=== PATIENT | female | born 1950 | race Caucasian/White ===

== ENCOUNTER → 2017-03-21 | Outpatient (CLI) | payer MEDICARE, OTHER | LOC: M LAB 08:53 | PROVIDERS: ATTEND Nurse Practitioner Women's Health | DX: R31.0 Gross hematuria (principal) ==

== ENCOUNTER → 2017-04-22 | Outpatient (CLI) | payer OTHER ==
[~2017-04-22] MED LIST: ISOVUE-370 76% 100ML VIAL (Q9967) As Ordered ONE
--- NOTE | 2017-04-23 04:57 | REP ---
Clinical: Hematuria. Technique: Axial precontrast, contrast enhanced, and delayed images of the abdomen and pelvis using 100 ml Isovue 370 intravenous contrast material with coronal and sagittal re-formations. Findings: Evaluation of the urinary check system demonstrates a 1.8 cm low density lesion in the medial lower pole of the right kidney which demonstrates enhancement and cannot be characterized as cyst. A 3.3 cm simple cyst is also appreciated in the anterior mid pole of the left kidney. No nephrolithiasis, perinephric stranding, hydroureteronephrosis or obstructing ureteral calculi are identified. Delayed images demonstrate normal excretion patterns to the collecting systems bladder. Liver, spleen, pancreas, gallbladder, and bilateral adrenal glands are normal. The enteric system is without obstruction or acute inflammatory process. Pelvis demonstrates normal bladder and evidence for prior hysterectomy. No pelvic fluid or ascites. No significant adenopathy. No free air. Abdominal aorta demonstrates atherosclerotic changes without aneurysm or dissection. Surrounding musculoskeletal structures are intact and without focal osseous abnormality. Lung bases are clear. Impression: 1. 1.8 cm low-density enhancing lesion in the right kidney suggestive of mass. No associated perinephric stranding or adenopathy appreciated. 2. 3.3 cm simple left renal cyst. Remainder of the urinary tract system is normal. 3. Remainder of the abdomen and pelvis is unremarkable. No ascites. No adenopathy. Signed by Carlos Barillas MD 04/23/2017 04:48 A
== END ==
LOC: M RAD 09:00
PROVIDERS: ATTEND Nurse Practitioner Women's Health
DX: N28.1 Cyst of kidney, acquired (principal)
CPT/HCPCS: 74178; Q9967

== ENCOUNTER → 2017-05-07 | Outpatient (CLI) | payer OTHER ==
[~2017-05-07] MED LIST changes: +ASPI81TA85 PO; +ATOR1TAB21 PO; +CALC600T57 PO; +HYDR12CA PO; -ISOVUE-370 76% 100ML VIAL (Q9967) As Ordered ONE; +LOSA50TA20 PO; +SERT-138 PO; +XANA0.25 PO
--- NOTE | 2017-05-07 09:03 | REPMRS ---
Patient History The patient states she has not had a clinical breast exam in over a year. Patient is postmenopausal. Family history of breast cancer in maternal aunt at age 42. 2 benign cyst aspirations. Digital Woman Screen Mammo: May 07, 2017 - Exam #: [id number] Bilateral CC and MLO view(s) were taken. Technologist: Shanika Dowling, Technologist Prior study comparison: May 14, 2016, digital woman screen mammo performed at [facility]. June 14, 2013, right breast digital mammo diagnostic unilateral, performed at [facility]. FINDINGS: There are scattered fibroglandular densities. There has been no change in the appearance of the mammogram from the prior studies. There is a mild amount of residual fibroglandular tissue which is fairly symmetric. There is no interval development of dominant mass, architectural distortion, or clustered microcalcification suggestive of malignancy. ASSESSMENT: BI-RADS/ACR category 1 mammogram. Negative. Recommendation Routine screening mammogram in 1 year (for women over age 40). This mammogram was interpreted with the aid of an FDA-approved computer-aided dectection system. Electronically Signed By: Luke Abel MD 05/07/17 0903
== END ==
LOC: M WHC 07:00
PROVIDERS: ATTEND Family Medicine
DX: Z12.31 Encounter for screening mammogram for malignant neoplasm of breast (principal); Z78.0 Asymptomatic menopausal state

== ENCOUNTER → 2017-05-11 | Outpatient (CLI) | payer OTHER ==
[2017-05-11 12:02] LABS: MEAN CORPUSCULAR HEMOGLOBIN 30.9 pg (27.0-33.0); MEAN CORPUSCULAR HGB CONC 34.3 g/dl (32.0-36.5); MEAN CORPUSCULAR VOLUME 89.9 fl (80.0-96.0); RED CELL DISTRIBUTION WIDTH 13.8 % (11.5-14.5); WHITE BLOOD COUNT 5.3 K/mm3 (4.0-10.0)
[2017-05-11 12:10] LABS: INR 1.01
--- NOTE | 2017-05-11 12:23 | REP ---
Clinical: Bladder mass. Comparison: 10/21/2013 . Technique: PA and lateral. Findings: The mediastinum and cardiac silhouette are normal. The lung hyman are clear and without acute consolidation, effusion, or pneumothorax. The skeletal structures are intact and normal. Impression: 1. No acute cardiopulmonary process. Signed by Carlos Barillas MD 05/11/2017 12:15 P
[2017-05-11 13:18] LABS: ALBUMIN 3.9 GM/DL (3.2-5.2); ALBUMIN/GLOBULIN RATIO 1.03 (1.00-1.93); BILIRUBIN,TOTAL 0.7 MG/DL (0.2-1.0); CREATININE FOR GFR 0.99 MG/DL (0.55-1.02); GLOMERULAR FILTRATION RATE 59.4 (>45); POTASSIUM SERUM 3.7 MEQ/L (3.5-5.1); TOTAL PROTEIN 7.7 GM/DL (6.4-8.2)
--- NOTE | 2017-05-13 07:24 | ECGEPIP ---
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
== END ==
LOC: M LAB 11:07
PROVIDERS: ATTEND Urology
DX: Z01.818 Encounter for other preprocedural examination (principal); D49.4 Neoplasm of unspecified behavior of bladder; Z79.899 Other long term (current) drug therapy

== ENCOUNTER → 2017-05-22 | Day surgery (SDC) | payer OTHER ==
--- NOTE | 2017-05-13 15:21 | CR ---
DATE OF CONSULTATION: 05/13/2017 PREOPERATIVE EVALUATION AND CONSULTATION SURGERY IS PLANNED FOR: 05/22/2017 at [facility] CONSULTING PHYSICIAN: Dr. Blaine Garcia SURGEON: Dr. Emmanuel Lowery of [facility] urology. PLANNED SURGICAL PROCEDURE: Cystoscopy with transurethral resection of bladder tumor and possible right ureteral stent placement. ANESTHESIA: General anesthesia. UROLOGY CONTACT: Iliana at [phone], extension 27. CHIEF COMPLAINT: Bladder tumor, D49.4. HISTORY OF PRESENT ILLNESS: Very pleasant 66-year-old patient of mine who presents today for preoperative evaluation and consultation for planned transurethral resection of bladder tumor. It is noted that she had seen Milton Neal NP in my office for an episode of gross hematuria earlier this year. Upon referral to urology, she was found to have a mass and surgery was planned. It is notable that the patient has had no personal history of cardiac issues. She denies any chest pain on exertion. She is able to exert herself past 3 METs without any chest pain or significant shortness of breath. She did have a nuclear stress test on 08/14/2009, which was found to be of low risk. EKG prior to that showed normal sinus rhythm. I do await preoperative testing, which the patient relates included EKG and laboratories completed at [facility]. Regarding the patient's respiratory status, she is a former smoker, smoking approximately one pack per day for 40 years, having quit in 2008 without any smoking since that time. She denies any wheezing, asthma symptoms or significant shortness of breath. She noted some nausea and vomiting previously with anesthesia, but no other reactions. No malignant hyperthermia. No apneic episodes. She does not believe she had any sleep apnea. She does snore on occasion but not regularly. Again, she has had no hematuria since her initial episode, nor did she have symptoms of a urinary tract infection (UTI) at this point. It is notable that the patient describes a renal mass that will also need evaluation after this initial surgical intervention. I do not have information regarding this, but will be requesting it. The patient's other medical issues are stable. These include hypertension, hyperlipidemia, osteoporosis, history of anxiety, postnasal drip, insomnia, and some trochanteric bursitis. The patient notes that the bursitis does flare intermittently, but otherwise we reviewed her medication in detail and she is taking each as prescribed with only rare use of her Xanax and Ambien use approximately twice a month only. PAST MEDICAL HISTORY: 1. Hypertension. 2. Hyperlipidemia. 3. Greater trochanteric bursitis bilaterally. 4. History of vertigo/resolved. 5. Insomnia. 6. Anxiety. 7. Osteoporosis, on bisphosphonate. 8. History of transient abnormal TSH. 9. Vulvar atrophy. 10. Family history of early cardiac disease. 11. Osteoarthritis of the lumbar spine. PAST SURGICAL HISTORY: 1. Colonoscopy. Dr. Rios in the fall of 2008. 2. Total hysterectomy in the late , along with appendectomy. 3. Left hand surgery in 1976. MEDICATIONS: - Boniva 150 mg monthly - Lipitor 20 mg one tablet daily - Xanax 0.5 mg one tablet twice a day as needed for anxiety (rarely used) - aspirin 81 mg by mouth daily (to be held for surgery) - Zoloft 100 mg by mouth daily - Ambien 5 mg one tablet at night as needed for sleep (using approximately twice a month) - hydrochlorothiazide 12.5 mg daily - calcium and vitamin D 500/400 International Units daily - Losartan 50 mg by mouth daily FAMILY HISTORY: Patient's father of heart disease at age 76. He also had Parkinson's. Mother suddenly from what was described as an acute myocardial infarction at age 73. She had a sister, Lavonne, who at age 68 of an acute myocardial infarction. She had a niece with a brain tumor, treated in [place]. SOCIAL HISTORY: The patient is to her second , Miguel Sam. She has three children from a prior marriage to Julius Mcneal. Two daughters, Aure and Anais, who live in [place] and [place], respectively. She has one son, Julius Bourne, who lives in [place], [place]. 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 She spends her bob in [place], [place]. She is a former smoker, having smoked approximately one pack of cigarettes per day for 40 years. She quit in 2008. REVIEW OF SYSTEMS: As per history of present illness. Otherwise, 10-system review is negative. PHYSICAL EXAMINATION: VITAL SIGNS: Blood pressure 128/74, pulse of 74. The patient is 5 feet 6 inches tall and weighs 166 pounds. Oxygen saturation is 98% on room air. GENERAL: The patient is well, no acute distress. Nontoxic. Alert and oriented times three. HEENT: Pupils are equal, round, and reactive to light and accommodation. Extraocular motions are intact. No lesions of the lid or conjunctivae. Oral cavity and oropharynx are benign except for a small amount of postnasal drip. Tympanic membranes are benign bilaterally with normal external auditory canals. NECK: Supple. No lymphadenopathy. No thyromegaly. HEART: Regular rate and rhythm. S1, S2. No murmurs appreciated. LUNGS: Clear to auscultation bilaterally. No rales, rhonchi or wheezes. ABDOMEN: Soft, nontender, nondistended. No organomegaly is appreciated. EXTREMITIES: No clubbing, cyanosis or edema. The patient has very thin ankles. NEUROLOGIC: Examination is completely nonfocal. She has a normal gait. Strength and sensation are intact to all four limbs. PREOPERATIVE TESTING: The patient reports that laboratories and EKG were completed at [facility]. We will obtain these, but at the time of dictation I do not have these available. LABORATORY DATA: Consist of PT/INR, CMP, CBC and urine culture. It is notable that the patient had a stress test on 08/14/[address] Yates, which was low risk (spoke to Dr. Yates' office regarding this during the patient's visit). ASSESSMENT AND PLAN: 1. Preoperative evaluation and consultation. Based on the information available to me at this point, the patient is optimized for surgical intervention. Although I do not have an EKG at this point, we will compare this when records are available to those from cardiology previously. Although her medical issues are as noted, she has no major predictors of significant coronary disease at this point, although she does have a family history of such. No significant respiratory issues, although she has a history of smoking. No significant issues with anesthesia, although precautions should be taken for pretreatment to avoid emesis and monitoring for occult obstructive sleep apnea symptoms. If I can be of any assistance, please call me at [phone]. 2. Neoplasm of the bladder. At this point in time, the patient understands the plan for excision with possible stenting of the ureter. Extensive education was done today reviewing the anatomy and the plan. She understands this and looks forward to surgical intervention. She does understand other treatment may be necessary. 3. Neoplasm of the right kidney. I do not have records but have requested such. She tells me that there is a possible lesion on the right kidney, which will need surgical intervention. She appears quite calm and methodical in her approach to having this procedure on 05/22 with followup of the lesion on the right kidney. She understands the need for followup. 4. Hypertension. Well controlled on present regimen. We will continue. 5. Hyperlipidemia. Doing well on Lipitor. We will continue. 6. Anxiety. Doing quite well with Zoloft at the present dose. Will use Xanax as prescribed prior to surgery if necessary. 7. Insomnia. Does well with Ambien as needed. May need this perioperatively as well. 8. Lumbar degenerative disc disease/osteoarthritis. Doing well at this point in time without exacerbation. We will monitor. 9. Osteoporosis. Doing well on monthly Boniva. Recent DEXA scan has been reviewed. 10. Postnasal drip. The patient will do saltwater gargles and nasal saline as necessary. 11. Trochanteric bursitis of the left hip. This is an ongoing issue. She does exercises that have been shown to her multiple times with good results. Pain medicine only as needed. 12. Ongoing care. I am going to see her again in the office as scheduled. Again, she will need followup on both laboratories and EKG from [facility] prior to surgery. If there are any new issues or concerns, prior to surgery, she will let us know as well. Addendum: Reviewed labs and EKG ordered by Dr Lowery's office. CBC, CMP, PT/PTT are WNL and EKG showed only sinus bradycardia with a HR of 57 bpm. No new information and the patient appears optimized for surgery as noted. MTDD
[~2017-05-22] VITALS: Ht 162.6 cm; Wt 73.9 kg
[~2017-05-22] MED LIST changes: +ACETAMINOPHEN TAB 650MG DOSE (2X325MG) PO PRN; +AMBI5TAB PO; +COLA100C5 PO; +CONRAY-60 60% 50ML VIAL (Q9961) As Ordered ONE; +GLYCOPYRROLATE INJ 0.2 MG/ML 2 ML VIAL As Ordered ONE; +IBAN150T5 PO; +LABETALOL HCL 100 MG/20 ML VIAL As Ordered ONE; +LIDOCAINE 2% INJ 100 MG/5 ML SDV (FOR ANES.) As Ordered ONE; +LR 1,000 ML IV ONE; +LR 1,000 ML IV SCH; +METOCLOPRAMIDE INJ 10MG/2ML VIAL (J2765) As Ordered ONE; +MIDAZOLAM INJ 2 MG/2 ML VIAL (J2250) As Ordered ONE; +NEOSTIGMINE 1MG/ML 5 ML SYRINGE (J2710) As Ordered ONE; +ONDANSETRON 4MG/2ML VIAL (J2405) As Ordered ONE; +ONDANSETRON 4MG/2ML VIAL (J2405) IV PRN; +PROPOFOL 200 MG/20 ML VIAL As Ordered ONE; +ROCURONIUM BROMIDE 50 MG/5 ML VIAL/SYRINGE As Ordered ONE; +SCOPOLAMINE 1.5 MG TRANSDERMAL TOP ONE; +TYLE325T5 PO; +ULTR50TA8 PO; +fentaNYL 100 MCG/2 ML INJECTION (J3010) As Ordered ONE; +fentaNYL 100 MCG/2 ML INJECTION (J3010) IV PRN
[2017-05-22 19:45] VITALS: BP 162/80
--- NOTE | 2017-05-23 13:02 | RO ---
DATE OF PROCEDURE: 05/22/2017 PREPROCEDURE DIAGNOSIS: Bladder tumors. POSTPROCEDURE DIAGNOSIS: Bladder tumors. PROCEDURE: Cystoscopy, transurethral resection of bladder tumors (greater than 5 cm), examination under anesthesia. SURGEON: Emmanuel Lowery MD NOTE KEEPER: None. ANESTHESIA: General. OPERATIVE INDICATIONS: This is a 66-year-old female who was found to have several bladder tumors along the right bladder wall and along the trigone. It was recommended she be brought to the operating room today for the above listed procedure. DESCRIPTION OF PROCEDURE: Patient was brought to the operating room and general anesthesia was induced. Prophylactic antibiotics were infused. She was then placed in dorsal lithotomy position and bimanual pelvic exam under anesthesia was performed. It was negative for palpable bladder masses. The bladder was freely mobile. The patient was then prepped and draped in the usual sterile fashion. At this point, a rigid cystoscope was inserted through the urethral meatus and advanced to the bladder. Her bladder was thoroughly examined and the only abnormalities seen were the bladder tumors on the right side of the bladder. At this point, I utilized a resectoscope to resect all the tumors. All of the tumors were then removed from the bladder using an Ellik evacuator. Of note, I was able to identify the right ureteral orifice and I did not have to resect on top of it. Because of that, I did not place a stent. Coagulation current was utilized to obtain hemostasis and hemostasis was adequate at the end of the procedure. Once done, the resectoscope was removed and an #18 Turkish Christopher catheter was inserted into the bladder and the balloon was filled with 10 mL of sterile water. The catheter was then connected to gravity drainage and this marked conclusion of the procedure. The patient was then taken out of dorsal lithotomy position, awakened from anesthesia and transported to the recovery room in stable condition. ESTIMATED BLOOD LOSS: 0 mL. COMPLICATIONS: None. SPECIMENS: Bladder tumors. PLAN: The patient will followup in a clinic in about a week for catheter removal and to discuss pathology results. Also, of note, she has a right renal tumor which will need to be treated with a partial nephrectomy at some point as well. [facility] HOSPITALShorty
== END | disposition home or self-care (01) ==
LOC: M SDC 13:30
PROVIDERS: ATTEND Urology
DX: D41.4 Neoplasm of uncertain behavior of bladder (principal); N28.89 Other specified disorders of kidney and ureter; R31.0 Gross hematuria; I10 Essential (primary) hypertension; F32.9 Major depressive disorder, single episode, unspecified; E78.5 Hyperlipidemia, unspecified; M51.9 Unspecified thoracic, thoracolumbar and lumbosacral intervertebral disc disorder; M81.0 Age-related osteoporosis without current pathological fracture; R06.83 Snoring; M70.61 Trochanteric bursitis, right hip; M70.62 Trochanteric bursitis, left hip; G47.00 Insomnia, unspecified; F41.9 Anxiety disorder, unspecified; N90.5 Atrophy of vulva; M47.819 Spondylosis without myelopathy or radiculopathy, site unspecified; Z88.5 Allergy status to narcotic agent; Z79.899 Other long term (current) drug therapy; Z79.82 Long term (current) use of aspirin; Z87.891 Personal history of nicotine dependence; Z90.710 Acquired absence of both cervix and uterus
CPT/HCPCS: 52240; 88305; J0690; J2250; J2405; J2710; J2765; J3010

== ENCOUNTER 2017-06-19 07:30 | Inpatient (IN) | payer OTHER, MEDICARE ==
--- NOTE | 2017-06-04 13:50 | CR ---
DATE OF CONSULTATION: 06/01/2017 PREOPERATIVE EVALUATION AND CONSULTATION: CONSULTING PHYSICIAN: Dr. Blaine Garcia MD. SURGEON: Dr. Emmanuel Lowery of [facility]. PLANNED SURGERY: Partial nephrectomy to be completed at [facility] on 06/19/2017. It is planned to be on the right side and robotic assisted, laparoscopic surgery under general anesthesia. This is being completed due to a renal mass. UROLOGY CONTACT: [phone], ext 27. CHIEF COMPLAINT: Kidney mass, N28.89. HISTORY OF PRESENT ILLNESS: This is a very pleasant 66-year-old patient of mine who presents today for preoperative evaluation consultation for planned partial nephrectomy in order to remove a mass that was found on CT scan evaluation of blood in the urine. The patient recently had a cystoscopy with removal of a superficial bladder tumor that was low grade. The patient did quite well with the procedure without any problems or issues. The patient has no personal history of cardiac issues. She denies any chest pain with exertion and is able to exert well beyond 3 mets without difficulty or significant shortness of breath. It is notable that she had a stress test 08/14/2009 that was found to be low risk. Electrocardiogram (EKG) completed on 05/13/2017 showed normal sinus rhythm. The patient is a former smoker having smoked approximately one pack a day for 40 years, quitting in 2008. She does deny any asthma symptoms, any wheezing, significant shortness of breath or other problems. She had no issues with prior anesthesia except for some nausea and vomiting, and has no family or personal history of malignant hyperthermia. She denies snoring or having any apneic spells as well. Otherwise, she notes her current medical issues are otherwise stable. Patient's other medical issues do include hypertension, hyperlipidemia, osteoporosis, history of anxiety, post nasal drip, insomnia, and trochanteric bursitis, all appear to be stable. She is taking all of her medication without difficulty. She does have a as needed medication for Xanax, Ambien, which can be used perioperatively if needed for anxiety or sleep issues. She uses them rarely , and again is otherwise doing well and has a good attitude regarding the upcoming surgery. PAST MEDICAL HISTORY: 1. Low grade bladder tumor recently resected in May 2017. 2. Hypertension. 3. Hyperlipidemia. 4. Greater trochanteric bursitis bilaterally. 5. History of vertigo, (resolved). 6. Insomnia. 7. Anxiety. 8. Osteoporosis on bisphosphonate. 9. History of transient abnormal TSH. 10. Vulvar atrophy. 11. Family history of early cardiac disease. 12. Osteoarthritis of the lumbar spine. PAST SURGICAL HISTORY: 1. Colonoscopy, Dr. Gabriel Reyna of 2008. 2. Total hysterectomy in late along with appendectomy. 3. Left hand surgery in 1976. 4. Transurethral removal of a low grade bladder tumor, May 2017. ALLERGIES: Patient reported morphine gave her hives at one point. MEDICATIONS: - Boniva 150 mg monthly - Lipitor 20 mg daily - Xanax 0.5 mg one tablet twice a day as needed for anxiety, (rarely used). - aspirin 81 mg, (understands this needs to be held for surgery). - Zoloft 100 mg by mouth daily - Ambien 5 mg by mouth nightly (as needed for sleep). Approximately used twice a month. - hydrochlorothiazide 12.5 mg daily - calcium with vitamin D Supplementation 50/400 international units taken daily - losartan 50 mg daily FAMILY HISTORY: The patient's father of heart disease at age 76. He also had Parkinson's. Mother suddenly of what they believe was acute myocardial infarction (AR) at age 73. A sister Lavonne at age 68 of acute myocardial infarction. She has a niece with a brain tumor, who is treated in [place]. SOCIAL HISTORY: The patient is to her second , Miguel Sam. She has three children from a prior marriage to Mr. Julius Mcneal. 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 She spends her bob in [place], [place]. She is former smoker having smoked approximately a pack a day for 40 years quitting in 2008. She does occasionally take alcohol, not on a regular basis. REVIEW OF SYSTEMS: As per history of present illness (HPI) otherwise, 10-systems review is negative. PHYSICAL EXAMINATION: VITAL SIGNS: Patient's weight is 162 pounds, 8 ounces, blood pressure 116/74, pulse 73, height 66 inches, oxygen saturation 98% on room air. GENERAL: The patient appears well. No acute distress. Nontoxic, alert, oriented times three. Appears to be quite upbeat. HEENT: Pupils equal, round, and reactive to light and accommodation. Extraocular motions are intact. There is no lesions of the lid or conjunctiva. Oral cavity and oropharynx are benign. TMs are benign bilaterally. Neck is supple. No lymphadenopathy or thyromegaly. HEART: Regular rate and rhythm. S1, S2 no murmurs. LUNGS: Clear to auscultation bilaterally. No rales or rhonchi or wheezes. ABDOMEN: Soft, nontender, nondistended. EXTREMITIES: No clubbing, cyanosis or edema. NEURO: Exam is nonfocal. ASSESSMENT/PLAN: 1. Preoperative evaluation consultation: Based on the information available, the patient appears to be optimized for surgical intervention. It is notable she recently had preoperative evaluation and surgery earlier this month and it appeared to go quite well without significant issues or concerns. The patient has no major risk factors for significant coronary artery disease, although she does have a family history, I expect appropriate monitoring will be made. She does not have any respiratory issues, known cardiac issues or significant anesthesia issues. If there are any concerns, please feel free to call me at [phone]. 2. Mass of the right kidney: At this point in time, I do not have full records and it does appear that this will be excised during the procedure. The patient is aware of the risk of a full nephrectomy may be necessary. She looks forward to having the surgery behind her. 3. Low grade bladder tumor - Recent resection with good results by Dr Lowery. She understands need for close urological follow up. Will monitor. 4. Hypertension: Well controlled, present intervention will continue. 5. Hyperlipidemia: Doing well on Lipitor. Will continue. 6. Anxiety. Doing well on Zoloft with rare use of Xanax. Will continue. 7. Insomnia: Th patient is using occasional Ambien about twice a week, understands its use and the risks involved. 8. Lumbar degenerative disc disease, doing well without exacerbation. Will monitor. 9. Osteoporosis doing well with monthly Boniva. Will continue to monitor. 10. Ongoing care: The patient will followup as scheduled with myself. If there is any new issues or concerns, she will let us know. CARLOS
[~2017-06-19] VITALS: Ht 162.6 cm; Wt 72.6 kg
[~2017-06-19 07:30] MED LIST changes: -ACETAMINOPHEN TAB 650MG DOSE (2X325MG) PO PRN; -AMBI5TAB PO; -COLA100C5 PO; -CONRAY-60 60% 50ML VIAL (Q9961) As Ordered ONE; -GLYCOPYRROLATE INJ 0.2 MG/ML 2 ML VIAL As Ordered ONE; -LABETALOL HCL 100 MG/20 ML VIAL As Ordered ONE; -LIDOCAINE 2% INJ 100 MG/5 ML SDV (FOR ANES.) As Ordered ONE; -LR 1,000 ML IV ONE; -LR 1,000 ML IV SCH; -METOCLOPRAMIDE INJ 10MG/2ML VIAL (J2765) As Ordered ONE; -MIDAZOLAM INJ 2 MG/2 ML VIAL (J2250) As Ordered ONE; -NEOSTIGMINE 1MG/ML 5 ML SYRINGE (J2710) As Ordered ONE; -ONDANSETRON 4MG/2ML VIAL (J2405) As Ordered ONE; -ONDANSETRON 4MG/2ML VIAL (J2405) IV PRN; -PROPOFOL 200 MG/20 ML VIAL As Ordered ONE; -ROCURONIUM BROMIDE 50 MG/5 ML VIAL/SYRINGE As Ordered ONE; -SCOPOLAMINE 1.5 MG TRANSDERMAL TOP ONE; -TYLE325T5 PO; -ULTR50TA8 PO; -fentaNYL 100 MCG/2 ML INJECTION (J3010) As Ordered ONE; -fentaNYL 100 MCG/2 ML INJECTION (J3010) IV PRN
[2017-06-19] MEDS ORDERED: LR 1,000 ML IV ONE (11:15)
[2017-06-19] MEDS ORDERED: METOCLOPRAMIDE INJ 10MG/2ML VIAL (J2765) IV PRN (14:20)
[2017-06-19] MEDS ORDERED: ONDANSETRON 4MG/2ML VIAL (J2405) IV PRN (14:20)
[2017-06-19] MEDS ORDERED: HYDROmorphone HCL 1 MG/ML SYRINGE (J1170) IV PRN (14:20)
[2017-06-19] MEDS ORDERED: LR 1,000 ML IV SCH (14:20)
[2017-06-19] MEDS ORDERED: PERCOCET 5MG/325MG TAB PO PRN (14:20)
[2017-06-19] MEDS ORDERED: fentaNYL 100 MCG/2 ML INJECTION (J3010) IV PRN (14:20)
[2017-06-19] MEDS ORDERED: SCOPOLAMINE 1.5 MG TRANSDERMAL As Ordered ONE (14:22)
[2017-06-19] MEDS ORDERED: SCOPOLAMINE 1.5 MG TRANSDERMAL TOP ONE (14:30)
[2017-06-19] MEDS ORDERED: BUPIVACAINE HCL 0.25% 30 ML VIAL As Ordered ONE (14:58)
[2017-06-19] MEDS ORDERED: LIDOCAINE 1% SDV INJ 30 ML VIAL As Ordered ONE (14:58)
[2017-06-19] MEDS ORDERED: PROPOFOL 200 MG/20 ML VIAL As Ordered ONE (15:09)
[2017-06-19] MEDS ORDERED: fentaNYL 250 MCG/5 ML INJECTION (J3010) As Ordered ONE (15:09)
[2017-06-19] MEDS ORDERED: ROCURONIUM BROMIDE 50 MG/5 ML VIAL/SYRINGE As Ordered ONE (15:09)
[2017-06-19] MEDS ORDERED: MIDAZOLAM INJ 2 MG/2 ML VIAL (J2250) As Ordered ONE (15:09)
[2017-06-19] MEDS ORDERED: LIDOCAINE 2% INJ 100 MG/5 ML SDV (FOR ANES.) As Ordered ONE (15:09)
[2017-06-19] MEDS: NS 1,000 ML IV SCH (15:50)
[2017-06-19] MEDS ORDERED: dexameTHASONE 4 MG/ML 1ML VIAL (J1100) As Ordered ONE (15:53)
[2017-06-19] MEDS ORDERED: ONDANSETRON 4MG/2ML VIAL (J2405) As Ordered ONE (15:53)
[2017-06-19] MEDS ORDERED: ACETAMINOPHEN TAB 650MG DOSE (2X325MG) PO PRN (16:00)
[2017-06-19] MEDS ORDERED: MORPHINE 2 MG/ML 1ML SYRINGE IV PRN (16:00)
[2017-06-19] MEDS ORDERED: diphenhydrAMINE INJ 50MG/ML VIAL (J1200) IV PRN (16:00)
[2017-06-19] MEDS ORDERED: MANNITOL 25% 12.5 GM/50 ML VIAL (J2150) As Ordered ONE (16:01)
[2017-06-19] MEDS ORDERED: HYDROmorphone HCL 2 MG/ML 1ML VIAL (J1170) As Ordered ONE (16:35)
[2017-06-19] MEDS ORDERED: PHENYLephrine HCL 500 MCG/5 ML (100MCG/ML) SYRINGE (J2370) As Ordered ONE ×2 (17:36→18:40)
[2017-06-19] MEDS ORDERED: GLYCOPYRROLATE INJ 0.2 MG/ML 2 ML VIAL As Ordered ONE (18:21)
[2017-06-19] MEDS ORDERED: NEOSTIGMINE 1MG/ML 5 ML SYRINGE (J2710) As Ordered ONE (18:21)
[2017-06-19 19:36] LABS: MEAN CORPUSCULAR HEMOGLOBIN 30.2 pg (27.0-33.0); MEAN CORPUSCULAR HGB CONC 34.3 g/dl (32.0-36.5); MEAN CORPUSCULAR VOLUME 87.9 fl (80.0-96.0); RED CELL DISTRIBUTION WIDTH 13.5 % (11.5-14.5); WHITE BLOOD COUNT 8.6 K/mm3 (4.0-10.0)
[2017-06-19] MEDS ORDERED: HYDROmorphone HCL 1 MG/ML SYRINGE (J1170) As Ordered ONE (20:05)
[2017-06-19 20:08] LABS: CREATININE FOR GFR 1.21 MG/DL (0.55-1.02); GLOMERULAR FILTRATION RATE 47.1 (>45); POTASSIUM SERUM 3.6 MEQ/L (3.5-5.1)
[2017-06-19] MEDS: PERCOCET 5MG/325MG TAB PO PRN (20:26)
--- NOTE | 2017-06-19 20:45 | ROOPDOC ---
[facility] Report Of Operation Report of Operation DATE OF PROCEDURE: 06/19/2017 PREPROCEDURE DIAGNOSIS: Right renal mass. POSTPROCEDURE DIAGNOSIS: Right renal mass. PROCEDURE: Right robotic assisted laparoscopic partial nephrectomy with renal exploration and intraoperative ultrasound for tumor mapping. SURGEON: Debbi Andrews MD DIALS SUPERVISOR: None ANESTHESIA: General. OPERATIVE INDICATIONS: This is a 66-year-old female who was found recently on CAT scan to have an approximately 2cm enhancing cystic right renal mass. She opted to undergo the above procedure for treatment. DESCRIPTION OF PROCEDURE: The patient was brought to the operating room where general anesthesia was induced. Prophylactic antibiotics were infused. An 18Fr coude catheter was then placed under sterile conditions. She was then placed in the left lateral decubitus position and secured to the table with tape. All pressure points were appropriately padded. She was then prepped and draped in the usual sterile fashion. Initial incision was for a 12 mm port along the lateral rectus margin in line with the 11th rib. After incision was made, the Veress needle was utilized to achieve pneumoperitoneum. A 12 mm port was inserted through this incision. Next, the camera was inserted and there were no apparent injuries from either Veress needle placement or initial trocar placement. The remainder of the ports were then placed under direct vision, including a 12 mm speech and language assistant port just distal to the camera port. Two robotic ports were placed with one of them between the anterior superior iliac spine and umbilicus and the other one just off the costal margin. In addition, two 5 mm ports were placed with one just beneath the xiphoid and the other one midway between the camera port and the right hand robotic port. After all the ports were placed, the robot was then docked. We began by releasing adhesions between the liver and upper part of Gerota's fascia. The liver was then lifted cephalad using a locking Allis clamp. We then mobilized the right colon away from Gerota's fascia. The duodenum was kocherized. At this point, the inferior vena cava was readily seen. We traced it up towards the right renal vein. Just inferior and posterior to the renal vein we identified the right renal artery. The artery was carefully dissected and cleared. Once we had dissected the artery, we then mobilized the kidney within Gerota's fascia. On the lower pole of the kidney the cystic mass was seen. At this point, intraoperative ultrasound was performed to notate the margins of the mass. Of note, while doing our dissection of the kidney, no additional abnormalities were seen on the kidney. Once we made note of the margins of the mass, I asked anesthesia to administer 12.5 mg of Mannitol. After that was done, we proceeded to place a clamp on the renal artery. We did not clamp the vein. After our clamp was placed and it was clear that we had good vascular control, we began to dissect out the mass. The mass was then dissected using cold scissors. We kept doing this until the it was completely excised. It did appear that we had clean margins. After excising the mass, we then performed the renorrhaphy. This was first performed using a #2-0 Vicryl suture and this was utilized to suture the deeper portion of the renal defect. After that point , we used an #0 Vicryl suture to reapproximate the renal capsule. Both of these sutures were cinched down using Weck clips. After these sutures were placed, the vascular clamp was taken off the renal artery. Of note, the warm ischemia time was 42 minutes. Once the vascular clamp was removed, it did appear that hemostasis was excellent. We placed Ralph hemostatic powder over the partial nephrectomy bed. During the procedure we made note that the ureter was just cephalad to the area of resection. We made certain to avoid the ureter during the resection and the renorrhaphy. Once we confirmed excellent hemostasis , we then reapproximated Gerota's fascia using Weck clips. The tumor was then placed in an Endo Catch bag for future retrieval. We released the locking Allis clamp which was retracting the liver and there did not appear to be any injuries to the liver. Next, we removed the left hand robotic instrument and inserted a J-P drain in through that port site. This drain was placed just anterior to the right kidney. Once that was done, the robot was undocked. We then sutured the J-P drain in place using a #2-0 Ethilon suture. After that was done, we removed the tumor through the speech and language assistant port site. We then utilized the Farooq-Tello fascia closure device to place a #0 Vicryl free tie through the fascia of the 12 mm camera port site. The fascia of the speech and language assistant port site was closed with a running #0 Vicryl suture. Once that was done, all the remaining ports were removed under direct vision. There was no bleeding seen. The previously placed #0 Vicryl free tie was then tied down. All the wounds were then thoroughly irrigated. After that was done, each incision was closed with running #4-0 Monocryl subcuticular suture. Once all the incisions were closed, Dermabond was applied and local anesthetic was applied. This marked conclusion of the procedure. The patient was then awakened from anesthesia and then transported to the recovery room in stable condition. Estimated blood loss: 10 mL. Complications: None. Specimen: Right renal mass. Warm Ischemia Time: 42 minutes. Percent Normal Kidney Spared: Approximately 95%. Plan: The patient will be admitted to the hospital postoperatively. She will be observed and will ultimately be discharged home once her kidney function is stable, her pain is controlled with oral pain medication and she is tolerating a regular diet. DEBBI ANDREWS MD Jun 19, 2017 20:45
[2017-06-19 21:30] VITALS: BP 134/62
[2017-06-19 22:00] VITALS: BP 120/69
[2017-06-19 23:00] VITALS: BP 166/79
[2017-06-20] VITALS (7 sets, daily range): BP systolic 140–180; BP diastolic 56–90
[2017-06-20] MEDS: DOCUSATE SODIUM 100 MG CAP PO SCH ×3 (00:26→20:10)
[2017-06-20] MEDS: PERCOCET 5MG/325MG TAB PO PRN ×3 (00:27→11:29)
[2017-06-20] MEDS: ceFAZolin SOD 1 GM in D5W MINI-BAG PLUS 50 ML IV SCH ×2 (00:27→07:01)
[2017-06-20] MEDS: NS 1,000 ML IV SCH ×2 (04:42→09:48)
[2017-06-20] MEDS: ONDANSETRON 4MG/2ML VIAL (J2405) IV PRN ×2 (04:46→13:52)
[2017-06-20 06:56] LABS: MEAN CORPUSCULAR HEMOGLOBIN 30.5 pg (27.0-33.0); MEAN CORPUSCULAR HGB CONC 34.5 g/dl (32.0-36.5); MEAN CORPUSCULAR VOLUME 88.3 fl (80.0-96.0); RED CELL DISTRIBUTION WIDTH 13.3 % (11.5-14.5); WHITE BLOOD COUNT 7.6 K/mm3 (4.0-10.0)
[2017-06-20 07:13] LABS: CALCIUM LEVEL 7.5 MG/DL (8.8-10.2); CREATININE FOR GFR 1.22 MG/DL (0.55-1.02); GLOMERULAR FILTRATION RATE 46.7 (>45); POTASSIUM SERUM 3.7 MEQ/L (3.5-5.1)
[2017-06-20] MEDS: ATORVASTATIN 20 MG TAB PO SCH (09:47)
[2017-06-20] MEDS: SERTRALINE 100 MG TAB PO SCH (09:47)
[2017-06-20] MEDS: hydroCHLOROthiazide 12.5 MG CAPSULE PO SCH (09:47)
[2017-06-20] MEDS: LOSARTAN 50 MG TAB PO SCH (09:48)
[2017-06-20] MEDS ORDERED: PERCOCET 5MG/325MG TAB PO PRN (10:30)
--- NOTE | 2017-06-20 11:08 | IPNPDOC ---
Assessment/Plan Date Seen The patient was seen on 06/20/17. Patient Summary This is a 66 y/o F POD1 s/p right robotic partial nephrectomy. She is doing well. Cr is stable at 1.2. Her Hb is 11.6. UOP is excellent. Patient notes adequate pain control. Plan/VTE VTE Prophylaxis Ordered?: Yes VTE Exclusion Mechanical Proph: N/A:VTE Prophy Ordered Plan/Urinary Catheter Urinary Catheter: D/C Christopher Plan - d/c Christopher - d/c IVF - percocet prn pain - strict I/Os - SCDs - ambulate - regular diet - possible discharge later today if tolerates regular diet and no difficulty ambulating - plan d/c MARI drain prior to discharge home Subjective Review oF Systems Chief Complaint The patient is a 66-year-old female admitted with a reason for visit of Renal Mass. Events since Last Encounter No acute events o/n. Patient notes adequate pain control with percocet. Had nausea and small amount of emesis this morning. Patient notes the nausea is better at this time. She has not ambulated yet. She denies f/c/ns. Objective Physical Examination General Exam: Alert, Cooperative, Mild Distress ENT EXAM: Atraumatic ABDOMEN EXAM: Other (incisions c/d/i; MARI draining serosanguinous fluid) Skin Exam: Nl turgor and temperature Neuro Exam: Normal Speech Psych Exam: Mental status NL, Mood NL Other physical findings catheter in place, draining clear urine Vital Signs/I&O Vital Signs Date Time Temp Pulse Resp B/P (MAP) Pulse Ox O2 Delivery O2 Flow Rate FiO2 06/20/17 09:48 147/71 06/20/17 06:00 98.3 78 20 94 Room Air 06/19/17 20:22 3 I&O- Last 24 Hours up to 6 AM 06/20/17 06:00 Intake Total 4744 ml Output Total 815 ml Balance 3929 ml Laboratory Data Labs 24H Laboratory Tests 2 06/19/17 19:28: Anion Gap 9, Glomerular Filtration Rate 47.1, Blood Urea Nitrogen 25H, Creatinine 1.21H, Sodium Level 142, Potassium Level 3.6, Chloride Level 107, Carbon Dioxide Level 26, Calcium Level 8.0L 06/20/17 06:23: Anion Gap 7L, Glomerular Filtration Rate 46.7, Blood Urea Nitrogen 24H, Creatinine 1.22H, Sodium Level 140, Potassium Level 3.7, Chloride Level 107, Carbon Dioxide Level 26, Calcium Level 7.5L CBC/BMP Laboratory Tests 06/19/17 19:28 Red Blood Count 4.23, Mean Corpuscular Volume 87.9, Mean Corpuscular Hemoglobin 30.2, Mean Corpuscular Hemoglobin Concent 34.3, Red Cell Distribution Width 13.5 , Calcium Level 8.0 L 06/20/17 06:23 Red Blood Count 3.80 L, Mean Corpuscular Volume 88.3, Mean Corpuscular Hemoglobin 30.5, Mean Corpuscular Hemoglobin Concent 34.5, Red Cell Distribution Width 13.3, Calcium Level 7.5 L DEBBI ANDREWS MD Jun 20, 2017 11:08
[2017-06-20] MEDS ORDERED: traMADol 50 MG TAB PO PRN ×2 (15:15)
[2017-06-21] MEDS ORDERED: zolPIDEM TARTRATE 5 MG TAB PO PRN (00:15)
[2017-06-21 06:00] VITALS: BP 140/58
[2017-06-21 07:43] LABS: CREATININE FOR GFR 1.18 MG/DL (0.55-1.02); GLOMERULAR FILTRATION RATE 48.5 (>45); POTASSIUM SERUM 3.2 MEQ/L (3.5-5.1)
[2017-06-21 07:46] LABS: MEAN CORPUSCULAR HEMOGLOBIN 30.6 pg (27.0-33.0); MEAN CORPUSCULAR HGB CONC 34.5 g/dl (32.0-36.5); MEAN CORPUSCULAR VOLUME 88.7 fl (80.0-96.0); RED CELL DISTRIBUTION WIDTH 13.5 % (11.5-14.5); WHITE BLOOD COUNT 7.3 K/mm3 (4.0-10.0)
[2017-06-21 09:20] VITALS: BP 140/58
[2017-06-21] MEDS: LOSARTAN 50 MG TAB PO SCH (09:20)
[2017-06-21] MEDS: ATORVASTATIN 20 MG TAB PO SCH (09:20)
[2017-06-21] MEDS: SERTRALINE 100 MG TAB PO SCH (09:20)
[2017-06-21] MEDS: hydroCHLOROthiazide 12.5 MG CAPSULE PO SCH (09:21)
[2017-06-21] MEDS: DOCUSATE SODIUM 100 MG CAP PO SCH (09:21)
--- NOTE | 2017-06-21 10:25 | IPNPDOC ---
Assessment/Plan Date Seen The patient was seen on 06/21/17. Patient Summary This is a 66 y/o F POD2 s/p right robotic partial nephrectomy. She is doing well this am. Cr is stable at 1.2 and UOP remains good. Hb stable. Plan/VTE VTE Prophylaxis Ordered?: Yes VTE Exclusion Mechanical Proph: N/A:VTE Prophy Ordered Plan - d/c MARI drain - ultram, tylenol prn pain - SCDs, ambulate - strict I/Os - zofran prn nausea - regular diet - plan discharge home Subjective Review oF Systems Chief Complaint The patient is a 66-year-old female admitted with a reason for visit of Renal Mass. Events since Last Encounter No acute events o/n. Patient had another episode of vomiting yesterday, likely due to percocet. She has not had any vomiting since then and is feeling better. No flatus or bm yet. Pain controlled w/ tylenol. No f/c/ns. Objective Physical Examination General Exam: Alert, Cooperative, Mild Distress ENT EXAM: Atraumatic ABDOMEN EXAM: Other (incisions c/d/i; abdomen soft w/ mild tenderness; MARI draining serosanguinous fluid) Skin Exam: Nl turgor and temperature Neuro Exam: Normal Speech Psych Exam: Mental status NL, Mood NL Vital Signs/I&O Vital Signs Date Time Temp Pulse Resp B/P (MAP) Pulse Ox O2 Delivery O2 Flow Rate FiO2 06/21/17 09:20 140/58 06/21/17 06:00 98.3 79 18 91 Room Air 06/19/17 20:22 3 I&O- Last 24 Hours up to 6 AM 06/21/17 06:00 Intake Total 1320 ml Output Total 1855 ml Balance -535 ml Laboratory Data Labs 24H Laboratory Tests 2 06/21/17 06:16: Anion Gap 10, Glomerular Filtration Rate 48.5, Blood Urea Nitrogen 18, Creatinine 1.18H, Sodium Level 142, Potassium Level 3.2L, Chloride Level 108H, Carbon Dioxide Level 24, Calcium Level 8.0L CBC/BMP Laboratory Tests 06/21/17 06:16 Red Blood Count 4.07, Mean Corpuscular Volume 88.7, Mean Corpuscular Hemoglobin 30.6, Mean Corpuscular Hemoglobin Concent 34.5, Red Cell Distribution Width 13.5 , Calcium Level 8.0 L DEBBI ANDREWS MD Jun 21, 2017 10:25
[2017-06-21] MEDS ORDERED: AMBI5TAB PO (11:33)
[2017-06-21] MEDS ORDERED: TYLE325T5 PO (11:33)
[2017-06-21] MEDS ORDERED: ULTR50TA8 PO (11:33)
[2017-06-21] MEDS ORDERED: COLA100C5 PO (11:33)
--- NOTE | 2017-06-22 11:46 | DSES ---
DATE OF ADMISSION: 06/19/2017 DATE OF DISCHARGE: 06/21/2017 ADMISSION DIAGNOSIS: Right renal mass. DISCHARGE DIAGNOSIS: Right renal mass. ADMITTING PHYSICIAN: Emmanuel Lowery MD DISCHARGE PHYSICIAN: Emmanuel Lowery MD PROCEDURES PERFORMED: Right robotic assisted laparoscopic partial nephrectomy on 06/19/2017. HISTORY OF PRESENT ILLNESS: This is a 66-year-old female who was found to have an approximately 2 cm enhancing cystic mass on the lower pole of her right kidney. After our discussion of options for management, a decision was made to undergo the above listed procedure for treatment. HOSPITALIZATION COURSE: The patient was admitted to the hospital with the above listed procedure on 06/19/2017. On postoperative day #1, her pain was well controlled. Of note, she did have a few episodes of vomiting, which prevented her from being discharged home on postoperative day #1. Her labs throughout her hospital stay were within normal limits with a serum creatinine, which was stable at 1.2. Her hemoglobin level was stable as well, and she made good urine output. By postoperative day #2, her nausea and vomiting had resolved and her pain also well controlled. She was tolerating a regular diet and was deemed ready for discharge. Her Christopher catheter was removed on postoperative day #1 and she voided without difficulty. Her Christiano-Jefferson drain was removed on postoperative day #2 prior to discharge. She was discharged home in good condition with a plan to followup in the clinic in approximately 1 week for a postoperative visit and to discuss pathology results.
== END 2017-06-21 12:10 | disposition home or self-care (01) | DRG 658 ==
LOC: M OR 11:00 → M MS5PR 21:11
PROVIDERS: ADMIT Urology; ATTEND Urology
PROC: 8E0W4CZ Robotic Assisted Procedure of Trunk Region, Percutaneous Endoscopic Approach (ICD-10-PCS; 2017-06-19)
PROC: 0TB04ZZ Excision of Right Kidney, Percutaneous Endoscopic Approach (ICD-10-PCS; principal; 2017-06-19 12:40)
DX: C64.1 Malignant neoplasm of right kidney, except renal pelvis (principal); I10 Essential (primary) hypertension; E78.5 Hyperlipidemia, unspecified; M81.0 Age-related osteoporosis without current pathological fracture; F41.9 Anxiety disorder, unspecified; M70.61 Trochanteric bursitis, right hip; R09.82 Postnasal drip; M70.62 Trochanteric bursitis, left hip; M47.816 Spondylosis without myelopathy or radiculopathy, lumbar region; N90.5 Atrophy of vulva; Z79.82 Long term (current) use of aspirin; Z87.891 Personal history of nicotine dependence; Z79.899 Other long term (current) drug therapy; Z85.51 Personal history of malignant neoplasm of bladder

== ENCOUNTER → 2017-06-29 | Outpatient (CLI) | payer OTHER ==
[~2017-06-29] MED LIST changes: +AMBI5TAB PO; +COLA100C5 PO; +TYLE325T5 PO; +ULTR50TA8 PO
[2017-06-29 14:08] LABS: MEAN CORPUSCULAR HEMOGLOBIN 30.8 pg (27.0-33.0); MEAN CORPUSCULAR HGB CONC 34.1 g/dl (32.0-36.5); MEAN CORPUSCULAR VOLUME 90.3 fl (80.0-96.0); RED CELL DISTRIBUTION WIDTH 12.9 % (11.5-14.5)
[2017-06-29 14:19] LABS: CALCIUM LEVEL 9.2 MG/DL (8.8-10.2); CREATININE FOR GFR 1.11 MG/DL (0.55-1.02); POTASSIUM SERUM 4.3 MEQ/L (3.5-5.1)
== END ==
LOC: M SMT 09:25
PROVIDERS: ATTEND Urology
DX: C64.9 Malignant neoplasm of unspecified kidney, except renal pelvis (principal)

== ENCOUNTER → 2017-09-08 | Outpatient (REF) | payer OTHER | LOC: M LAB REF 17:16 | PROVIDERS: ATTEND Urology | DX: C64.9 Malignant neoplasm of unspecified kidney, except renal pelvis (principal) ==

== ENCOUNTER → 2017-12-08 | Outpatient (REF) | payer OTHER | LOC: M SMT 13:04 | DX: C67.9 Malignant neoplasm of bladder, unspecified (principal) | CPT/HCPCS: 88108 ==

== ENCOUNTER → 2017-12-16 | Outpatient (CLI) | payer OTHER ==
[2017-12-16 14:01] LABS: ANION GAP 5 MEQ/L (8-16); BLOOD UREA NITROGEN 32 MG/DL (7-18); CALCIUM LEVEL 8.8 MG/DL (8.8-10.2); CARBON DIOXIDE LEVEL 29 MEQ/L (21-32); CHLORIDE LEVEL 109 MEQ/L (98-107); CREATININE FOR GFR 1.06 MG/DL (0.55-1.30); GLOMERULAR FILTRATION RATE 54.7 (>45); GLUCOSE, FASTING 84 MG/DL (70-100); POTASSIUM SERUM 4.3 MEQ/L (3.5-5.1); SODIUM LEVEL 143 MEQ/L (136-145)
== END ==
LOC: M SMT 10:26
DX: C64.9 Malignant neoplasm of unspecified kidney, except renal pelvis (principal)
CPT/HCPCS: 80048

== ENCOUNTER → 2017-12-17 | Outpatient (CLI) | payer OTHER ==
[~2017-12-17] MED LIST changes: -AMBI5TAB PO; -ASPI81TA85 PO; -ATOR1TAB21 PO; -CALC600T57 PO; -COLA100C5 PO; -HYDR12CA PO; -IBAN150T5 PO; +ISOVUE-370 76% 100ML VIAL (Q9967) As Ordered; -LOSA50TA20 PO; -SERT-138 PO; -TYLE325T5 PO; -ULTR50TA8 PO; -XANA0.25 PO
== END ==
LOC: M RAD 07:36
DX: C64.9 Malignant neoplasm of unspecified kidney, except renal pelvis (principal)
CPT/HCPCS: Q9967

== ENCOUNTER → 2018-03-09 | Outpatient (REF) | payer OTHER | LOC: M SMT 13:12 | DX: C67.9 Malignant neoplasm of bladder, unspecified (principal) | CPT/HCPCS: 88108 ==

== ENCOUNTER → 2018-05-27 | Outpatient (CLI) | payer OTHER | LOC: M WHC 07:21 | DX: Z12.31 Encounter for screening mammogram for malignant neoplasm of breast (principal); M81.0 Age-related osteoporosis without current pathological fracture; Z78.0 Asymptomatic menopausal state; Z92.89 Personal history of other medical treatment | CPT/HCPCS: 77067 ==

== ENCOUNTER → 2018-06-14 | Outpatient (REF) | payer OTHER | LOC: M SMT 12:49 | DX: C67.9 Malignant neoplasm of bladder, unspecified (principal) | CPT/HCPCS: 88108 ==

== ENCOUNTER → 2018-10-25 | Outpatient (CLI) | payer OTHER ==
[2018-10-25 13:27] LABS: ANION GAP 8 MEQ/L (8-16); BLOOD UREA NITROGEN 26 MG/DL (7-18); CARBON DIOXIDE LEVEL 26 MEQ/L (21-32); CHLORIDE LEVEL 108 MEQ/L (98-107); CREATININE FOR GFR 1.07 MG/DL (0.55-1.30); GLUCOSE, FASTING 69 MG/DL (70-100); POTASSIUM SERUM 4.1 MEQ/L (3.5-5.1); SODIUM LEVEL 142 MEQ/L (136-145)
== END ==
LOC: M SMT 10:44
DX: C64.9 Malignant neoplasm of unspecified kidney, except renal pelvis (principal)
CPT/HCPCS: 80048

== ENCOUNTER → 2018-10-27 | Outpatient (CLI) | payer OTHER | LOC: M RAD 09:26 | DX: C64.9 Malignant neoplasm of unspecified kidney, except renal pelvis (principal); N28.1 Cyst of kidney, acquired; Z90.5 Acquired absence of kidney | CPT/HCPCS: Q9967 ==

== ENCOUNTER → 2018-11-05 | Outpatient (REF) | payer OTHER ==
[~2018-11-05] MED LIST changes: +AMBI5TAB PO; +ASPI81TA85 PO; +ATOR1TAB21 PO; +CALC600T57 PO; +COLA100C5 PO; +HYDR12CA PO; +IBAN150T6 PO; -ISOVUE-370 76% 100ML VIAL (Q9967) As Ordered; +LOSA50TA73 PO; +SERT-138 PO; +TYLE325T5 PO; +ULTR50TA8 PO; +XANA0.25 PO
== END ==
LOC: M SMT 16:45
PROVIDERS: ATTEND Urology
DX: C67.9 Malignant neoplasm of bladder, unspecified (principal)

== ENCOUNTER → 2019-03-23 | Outpatient (CLI) | payer MEDICARE ==
[~2019-03-23] MED LIST changes: -LOSA50TA73 PO; +LOSA50TA88 PO
--- NOTE | 2019-03-24 02:44 | REP ---
Clinical: Trauma. Pain. Technique: AP, lateral, bilateral oblique views of the left ankle. Findings: Lateral swelling consist with inversion injury. No acute fracture or dislocation. Joint spaces and ankle mortise are intact. Impression: Swelling. No acute fracture dislocation. Electronically Signed by Carlos Barillas MD 03/24/2019 02:36 A
--- NOTE | 2019-03-24 02:55 | REP ---
Clinical: Trauma. Sprain. Technique: AP, lateral, bilateral oblique views of the left foot. Findings: Soft tissue swelling surrounding the ankle is appreciated. No obvious acute fracture or dislocation identified. Moderate arthritic changes noted. Impression: Soft-tissue swelling. No acute fracture dislocation identified. Electronically Signed by Carlos Barillas MD 03/24/2019 02:46 A
== END ==
LOC: M WUC 11:54
PROVIDERS: ATTEND Physician Assistant
DX: M25.472 Effusion, left ankle (principal); M25.475 Effusion, left foot; S93.402A Sprain of unspecified ligament of left ankle, initial encounter; S93.602A Unspecified sprain of left foot, initial encounter; X58.XXXA Exposure to other specified factors, initial encounter; Y92.9 Unspecified place or not applicable

== ENCOUNTER → 2019-04-14 | Outpatient (CLI) | payer MEDICARE ==
--- NOTE | 2019-04-14 08:51 | REP ---
MRI left ankle without contrast: History: Left ankle injury. Evaluate for peroneal tendon rupture. Pain 5 weeks after a fall. Comparison radiographs: March 23, 2019. Technique: Axial, coronal, and sagittal imaging planes were utilized. T1 and T2-weighted scans were obtained with and without fat saturation. MRI findings: There is a small zone of marrow edema in the lateral aspect of the calcaneus consistent with contusion. Cortical and medullary bone signal intensity are otherwise normal. There is no evidence of occult fracture. There is a small quantity of ankle joint fluid. No periarticular cyst or mass is seen. There is prominent Achilles tendon insertion calcaneal spurring. Otherwise, the distal Achilles tendon is normal in caliber and homogeneous in low in signal intensity. Plantar fascia are smooth. The anterior talofibular ligament appears disrupted consistent with ankle sprain. The anterior inferior tibiofibular ligament appears intact as does the posterior inferior tibiofibular ligament. The calcaneofibular and the deltoid ligamentous complex appear intact. The posterior talofibular ligament has an intact appearance as well. Medially tibialis posterior, flexor digitorum, and flexor hallicis longus tendons are unremarkable. No extensor tendinopathy. Laterally, there is no evidence of peroneus longus or brevis disruption. There is some edema in the tissues around the peroneus tendons below the level of the fibular tip which may reflect peritonitis or tendonitis. Exam is otherwise unremarkable. Impression: 1. There is a small area of fluid surrounding the peroneus longus and brevis tendons just below the lateral malleolus. This may reflect tendonitis. No tendon disruption is seen. 2. There is a small area of marrow edema in the lateral aspect of the calcaneus adjacent to the peroneus longus and brevis tendons which may reflect marrow contusion. 3. There is calcaneal spurring at the Achilles tendon insertion. 4. Anterior talofibular ligament tear. Electronically Signed by Aaron Ordaz MD 04/14/2019 02:32 P
== END ==
LOC: M RAD 06:45
PROVIDERS: ATTEND Orthopaedic Surgery
DX: S93.402A Sprain of unspecified ligament of left ankle, initial encounter (principal); X58.XXXA Exposure to other specified factors, initial encounter; Y92.9 Unspecified place or not applicable; M77.32 Calcaneal spur, left foot

== ENCOUNTER → 2019-04-15 | Outpatient (CLI) | payer MEDICARE | LOC: M PT 09:05 | PROVIDERS: ATTEND Orthopaedic Surgery | DX: S93.402A Sprain of unspecified ligament of left ankle, initial encounter (principal); X58.XXXA Exposure to other specified factors, initial encounter; Y92.9 Unspecified place or not applicable ==

== ENCOUNTER → 2019-06-10 | Outpatient (REF) | payer MEDICARE | LOC: M SMT 16:55 | PROVIDERS: ATTEND Urology | DX: C67.9 Malignant neoplasm of bladder, unspecified (principal) ==

== ENCOUNTER → 2019-06-10 | Outpatient (REF) | payer MEDICARE | LOC: M SMT 17:18 | PROVIDERS: ATTEND Urology | DX: C67.9 Malignant neoplasm of bladder, unspecified (principal) ==

== ENCOUNTER 2019-08-04 08:39 | Day surgery (SDC) | payer MEDICARE ==
[~2019-08-04] VITALS: Ht 162.6 cm; Wt 71.7 kg
[~2019-08-04 08:39] MED LIST changes: +QC A650T3 PO; +[UNRECOGNIZED DRUG - OTHER] PO
[2019-08-04] MEDS: NS 1,000 ML IV ONE (08:45)
[2019-08-04] MEDS ORDERED: PROPOFOL 500 MG/50 ML VIAL As Ordered ONE (10:12)
[2019-08-04] MEDS ORDERED: LIDOCAINE 2% INJ 100 MG/5 ML SDV (FOR ANES.) As Ordered ONE (10:12)
--- NOTE | 2019-08-04 10:20 | ROOR ---
Patient Name: Nell Sam Procedure Date: 08/04/2019 10:01 AM Date of : 1950 Age: 69 Room: [facility] Gender: Female Note Status: Finalized Procedure: Colonoscopy Indications: Screening for colorectal malignant neoplasm Providers: Kris Caballero Jr, MD Referring MD: Blaine Garcia MD Requesting Provider: Medicines: Propofol per Anesthesia Complications: No immediate complications. Procedure: Pre-Anesthesia Assessment: - Prior to the procedure, a History and Physical was performed, and patient medications and allergies were reviewed. The patient is competent. The risks and benefits of the procedure and the sedation options and risks were discussed with the patient. All questions were answered and informed consent was obtained. Patient identification and proposed procedure were verified by the physician and the nurse in the pre-procedure area and in the procedure room. Mental Status Examination: alert and oriented. Airway Examination: normal oropharyngeal airway and neck mobility. Respiratory Examination: clear to auscultation. CV Examination: normal. ASA Grade Assessment: II - A patient with mild systemic disease. After reviewing the risks and benefits, the patient was deemed in satisfactory condition to undergo the procedure. The anesthesia plan was to use moderate sedation / analgesia (conscious sedation). Immediately prior to administration of medications, the patient was re-assessed for adequacy to receive sedatives. The heart rate, respiratory rate, oxygen saturations, blood pressure, adequacy of pulmonary ventilation, and response to care were monitored throughout the procedure. The physical status of the patient was re-assessed after the procedure. The Colonoscope was introduced through the anus and advanced to the cecum, identified by appendiceal orifice and ileocecal valve. The colonoscopy was performed without difficulty. The patient tolerated the procedure well. The quality of the bowel preparation was adequate. Findings: The rectum, recto-sigmoid colon, descending colon, transverse colon, ascending colon, cecum, appendiceal orifice and ileocecal valve appeared normal. Multiple small and large-mouthed diverticula were found in the sigmoid colon. Impression: - The rectum, recto-sigmoid colon, descending colon, transverse colon, ascending colon, cecum, appendiceal orifice and ileocecal valve are normal. - Diverticulosis in the sigmoid colon. - No specimens collected. Recommendation: - Discharge patient to home (ambulatory). - Repeat colonoscopy in 10 years for screening purposes. Kris Caballero MD Kris Caballero Jr, MD 08/04/2019 10:19:51 AM Electronically signed by Kris Caballero Jr, MD Number of Addenda: 0 Note Initiated On: 08/04/2019 10:01 AM Estimated Blood Loss: Estimated blood loss: none.
[2019-08-04 10:40] VITALS: BP 154/84
== END 2019-08-04 10:46 | disposition home or self-care (01) ==
LOC: M OPP 08:39
PROVIDERS: ATTEND Surgery
DX: Z12.11 Encounter for screening for malignant neoplasm of colon (principal); K57.30 Diverticulosis of large intestine without perforation or abscess without bleeding; Z79.82 Long term (current) use of aspirin; Z79.899 Other long term (current) drug therapy; Z88.5 Allergy status to narcotic agent; Z91.030 Bee allergy status; Z87.891 Personal history of nicotine dependence; Z85.528 Personal history of other malignant neoplasm of kidney; Z85.51 Personal history of malignant neoplasm of bladder

== ENCOUNTER 2019-10-21 19:08 | Emergency (ER) | payer MEDICARE ==
[~2019-10-21] VITALS: Ht 162.6 cm; Wt 71.8 kg
[2019-10-21] MEDS ORDERED: ONDANSETRON 4 MG ORAL DISINTEGRATING TAB (Q0162 PER 1MG) PO ONE (19:45)
[2019-10-21] MEDS ORDERED: ACETAMINOPH W/CODEINE #3 TAB UD PO ONE (19:45)
[2019-10-21] MEDS ORDERED: traMADol 50 MG TAB PO ONE (21:00)
[2019-10-21] MEDS ORDERED: TRAM50TA2 PO (21:44)
[2019-10-21] MEDS ORDERED: REGL5TAB2 PO (21:44)
[2019-10-21] MEDS ORDERED: METOCLOPRAMIDE 5 MG TAB PO ONE (21:45)
[2019-10-21 21:46] VITALS: BP 144/68
[2019-10-21] MEDS ORDERED: METOCLOPRAMIDE 10 MG TAB PO ONE (22:00)
--- NOTE | 2019-10-22 08:40 | REP ---
PA CHEST WITH RIGHT RIBS: 10/21/2019. COMPARISON: Chest 05/11/2017. CLINICAL HISTORY: Right-sided chest trauma. FINDINGS: PA CHEST: Lungs adequately inflated. Some minor basilar atelectasis or fibrosis without dense consolidation or definite effusion on the PA chest. Some apical pleuroparenchymal scarring, unchanged. No dense consolidation, pulmonary nodule, or mass. The heart is not enlarged. Aorta is calcified, tortuous, and unchanged. Airway intact. No widening of the mediastinum. RIGHT RIBS: Four views show left 7th and 8th minimally displaced and nondisplaced rib fractures, respectively with old 6th rib fracture suspected as well. I do not see other definite rib fractures, pleural effusion, or pneumothorax. Clavicle, scapula, and visualized humerus show only some minor degenerative changes. There are degenerative changes in the spine as well. IMPRESSION: 1. Right lateral 7th mildly displaced and 8th nondisplaced rib fractures with an old 6th rib fracture suggested. I do not see any pleural effusion, pneumothorax, or other acute finding. 2. PA chest without infiltrate or pneumothorax. No cardiomegaly or edema. Electronically Signed by Topher Waldron MD 10/22/2019 07:42 P
--- NOTE | 2019-10-22 08:47 | REP ---
RIGHT SHOULDER, COMPLETE: 10/21/2019. CLINICAL HISTORY: Right shoulder pain, trauma. Fell on right side. FINDINGS: Three views are provided. The AC joint was intact with no widening of the joint space or elevation of clavicle. No clavicular fracture. Humeral head is without fracture. The glenoid shows no fracture, focal lesion, or minor degenerative changes at the glenohumeral joint. Visualized ribs are intact without fracture or pneumothorax in this field of view. IMPRESSION: 1. Degenerative changes glenohumeral joint but no evidence of fracture or acute finding about the shoulder. Electronically Signed by Topher Waldron MD 10/22/2019 07:42 P
== END 2019-10-21 22:06 | disposition home or self-care (01) ==
LOC: M ED 19:08
DX: S22.41XD Multiple fractures of ribs, right side, subsequent encounter for fracture with routine healing (principal); W00.0XXA Fall on same level due to ice and snow, initial encounter; Y92.014 Private driveway to single-family (private) house as the place of occurrence of the external cause; I10 Essential (primary) hypertension; Z79.899 Other long term (current) drug therapy; Z79.82 Long term (current) use of aspirin; Z88.5 Allergy status to narcotic agent; Z91.030 Bee allergy status
CPT/HCPCS: 71101; 73030; 99284; Q0162

== ENCOUNTER → 2019-11-21 | Outpatient (CLI) | payer MEDICARE ==
[~2019-11-21] MED LIST changes: +ISOVUE-370 76% 100ML VIAL (Q9967) As Ordered ONE; +REGL5TAB2 PO; +TRAM50TA2 PO
--- NOTE | 2019-11-21 21:35 | REP ---
Clinical: Renal cell carcinoma. Technique: Axial contrast enhanced and delayed images of the abdomen using 100 ml Isovue 370 intravenous contrast material with coronal and sagittal re-formations. Comparison: 10/27/2018. Findings: Minimally displaced fractures involving the posterolateral right 7th through 10th ribs noted. A small/moderate right pleural effusion is identified with right basilar atelectasis and minimal scattered scarring. Visualized portions of the heart and pericardium are normal. Liver demonstrates stable 2 cm cyst in the medial right lobe and subcentimeter hypodensity suggesting smaller cyst in the anterior right lobe stable compared to prior examination. Spleen, pancreas, gallbladder, bilateral adrenal glands and right kidney are normal / stable. Left kidney includes stable 4.3 cm simple anterior cyst. For the enteric system demonstrates small hiatal hernia and is otherwise normal. No bowel obstruction or acute of for process. No ascites. No free air. No adenopathy. Infrarenal abdominal aorta measures 3.5 cm maximal diameter. Impression: 1. Multiple acute right rib fractures with associated small/moderate right pleural effusion and right basilar atelectasis. 2. Stable nonacute findings within the abdomen. Electronically Signed by Carlos Barillas MD 11/21/2019 09:27 P
== END ==
LOC: M RAD 13:46
PROVIDERS: ATTEND Urology
DX: S22.41XA Multiple fractures of ribs, right side, initial encounter for closed fracture (principal); X58.XXXA Exposure to other specified factors, initial encounter; Y92.9 Unspecified place or not applicable; J90 Pleural effusion, not elsewhere classified; J98.11 Atelectasis; C64.9 Malignant neoplasm of unspecified kidney, except renal pelvis
CPT/HCPCS: 74160; Q9967

== ENCOUNTER → 2019-11-25 | Outpatient (REF) | payer MEDICARE ==
[~2019-11-25] MED LIST changes: -ISOVUE-370 76% 100ML VIAL (Q9967) As Ordered ONE
== END ==
LOC: M SMT 16:58
PROVIDERS: ATTEND Urology
DX: C67.9 Malignant neoplasm of bladder, unspecified (principal)

== ENCOUNTER → 2020-05-28 | Outpatient (REF) | payer MEDICARE ==
[~2020-05-28] MED LIST changes: -ASPI81TA85 PO; +ASPI81TA86 PO
== END ==
LOC: M SMT 09:52
PROVIDERS: ATTEND Urology
DX: C67.9 Malignant neoplasm of bladder, unspecified (principal)

== ENCOUNTER → 2020-08-15 | Outpatient (CLI) | payer MEDICARE ==
--- NOTE | 2020-08-15 11:20 | REPMRS ---
Patient History The patient states she has not had a clinical breast exam in over a year. Family history of breast cancer at age 42 in maternal aunt. 2 benign cyst aspirations. 3D TOMOSYNTHESIS WAS PERFORMED. [facility] lifetime risk for breast cancer is 4.7%. Volpara density b. Digital Woman Screen Mammo: August 15, 2020 - Exam #: [id number] Bilateral CC and MLO view(s) were taken. Technologist: RT Taye Prior study comparison: May 27, 2018, bilateral digital woman screen mammo performed at [facility]. May 07, 2017, digital woman screen mammo performed at [facility]. FINDINGS: The breast tissue is heterogeneously dense. This may lower the sensitivity of mammography. There is a fairly symmetric fibroglandular pattern in both breasts. There has been no interval development of masses, areas of architectural distortion or clusters of microcalcifications typical of malignancy. There are a few stable small nodules bilaterally. No significant changes when compared with prior studies. Assessment: BI-RADS/ACR category 2 mammogram. Benign Findings. Recommendation Routine screening mammogram of both breasts in 1 year (for women over age 40). This mammogram was interpreted with the aid of an FDA-approved computer-aided dectection system. Electronically Signed By: Luke Abel MD 08/15/20 0400
--- NOTE | 2020-08-21 13:50 | DEXA ---
AP SPINE L1 - L4 1.317 1.0 2.7 LT FEMUR TOTAL 0.792 -1.7 -0.1 LT NECK 0.735 -2.2 -0.4 RT FEMUR TOTAL 0.751 -2.0 -0.5 RT NECK 0.705 -2.4 -0.6 TOTAL BODY TOTAL OTHER COMMENTS: Normal bone densitometry of the spine. There is low bone density of the hips. The density of the spine has increased 19.1% since the initial exam on 11/10/2000. The increased 3.5% since the most recent exam on 05/27/2018. The density of the left hip has increased 1.5% since the initial exam on 11/10/2000. The density of the left hip has increased 2.3% since the most recent exam on 05/27/2018. The density of the right hip has increased 2.0% since the initial exam on 11/10/2000. The density of the right hip has increased 0.8% since the most recent exam on 05/27/2018. FOLLOW-UP: Recommendation for the next bone density exam: 2 Years. RANJITHD
== END ==
LOC: M WHC 10:03
PROVIDERS: ATTEND Family Medicine
DX: Z12.31 Encounter for screening mammogram for malignant neoplasm of breast (principal); Z13.820 Encounter for screening for osteoporosis; M85.851 Other specified disorders of bone density and structure, right thigh; M85.852 Other specified disorders of bone density and structure, left thigh

== ENCOUNTER → 2021-05-16 | Outpatient (CLI) | payer MEDICARE ==
[~2021-05-16] MED LIST changes: +ISOVUE-370 76% 100ML VIAL As Ordered ONE
--- NOTE | 2021-05-16 13:28 | REP ---
INDICATION: RENAL CELL CA. COMPARISON: 11/11/2019 TECHNIQUE: PA and lateral FINDINGS: The cardiomediastinal silhouette is unchanged. There is thoracic aortic tortuosity. The heart is not enlarged. The lung hyman are clear and the pleural angles are sharp. The osseous structures are stable and intact. IMPRESSION: There is no acute cardiopulmonary disease. <Electronically signed by Marshall Myers > 05/16/21 [id number]
--- NOTE | 2021-05-16 14:02 | REP ---
INDICATION: RENAL CELL CA COMPARISON: 11/21/2019 TECHNIQUE: Axial contrast-enhanced and delayed images of the abdomen using 100 cc Isovue 370 intravenous contrast material with coronal and sagittal reformations. This CT examination was performed using the following dose reduction techniques: Automated exposure control, adjustment of mA and/or kv according to the patient's size, and use of iterative reconstruction technique. FINDINGS: Lung bases are clear. Old healed right rib fractures noted and previous effusion has resolved. Visualized heart and pericardium normal. Liver demonstrates few stable cysts measuring up to 1.7 cm maximal diameter. Spleen, pancreas, gallbladder, and bilateral adrenal glands. Right kidney demonstrates changes related to prior partial nephrectomy without recurrence. Left kidney demonstrates stable sub cm and 4.2 cm cysts. No evidence for recurrence or metastatic disease. The enteric system includes small hiatal hernia at the gastroesophageal junction. No obstruction or acute inflammatory process to the visualized small and large bowel. No ascites. No free air. No adenopathy. Visualized abdominal aorta demonstrates calcified and noncalcified changes. IMPRESSION: 1. Stable left renal cyst. No evidence for recurrence or metastatic disease. 2. Small hiatal hernia. 3. Stable few hepatic cysts. <Electronically signed by Carlos Barillas > 05/16/21 [id number]
== END ==
LOC: M RAD 12:59
PROVIDERS: ATTEND Urology
DX: C64.9 Malignant neoplasm of unspecified kidney, except renal pelvis (principal); K76.89 Other specified diseases of liver; N28.1 Cyst of kidney, acquired; K44.9 Diaphragmatic hernia without obstruction or gangrene
CPT/HCPCS: 71046; 74160; Q9967

== ENCOUNTER → 2021-05-27 | Outpatient (REF) | payer MEDICARE ==
[~2021-05-27] MED LIST changes: -ISOVUE-370 76% 100ML VIAL As Ordered ONE
== END ==
LOC: M SMT 13:08
PROVIDERS: ATTEND Urology
DX: C67.9 Malignant neoplasm of bladder, unspecified (principal)

== ENCOUNTER → 2021-12-13 | Outpatient (CLI) | payer MEDICARE ==
[~2021-12-13] MED LIST changes: +LOSA50TA28 PO; -LOSA50TA88 PO
== END ==
LOC: M RAD 09:21
PROVIDERS: ATTEND Family Medicine
DX: Z12.2 Encounter for screening for malignant neoplasm of respiratory organs (principal); Z87.891 Personal history of nicotine dependence; R91.8 Other nonspecific abnormal finding of lung field; I70.0 Atherosclerosis of aorta; I25.10 Atherosclerotic heart disease of native coronary artery without angina pectoris; J98.4 Other disorders of lung

== ENCOUNTER → 2022-02-18 | Outpatient (CLI) | payer MEDICARE | LOC: M RAD 11:28 | PROVIDERS: ATTEND Family Medicine | DX: M47.812 Spondylosis without myelopathy or radiculopathy, cervical region (principal); M25.562 Pain in left knee ==

== ENCOUNTER → 2022-05-27 | Outpatient (REF) | payer MEDICARE | LOC: M SMT 18:49 | PROVIDERS: ATTEND Urology | DX: C67.9 Malignant neoplasm of bladder, unspecified (principal); Z85.51 Personal history of malignant neoplasm of bladder ==

== ENCOUNTER → 2022-05-29 | Outpatient (CLI) | payer MEDICARE | LOC: M WHC 07:38 | PROVIDERS: ATTEND Family Medicine | DX: Z12.31 Encounter for screening mammogram for malignant neoplasm of breast (principal); R92.8 Other abnormal and inconclusive findings on diagnostic imaging of breast; Z78.0 Asymptomatic menopausal state; Z80.3 Family history of malignant neoplasm of breast ==

== ENCOUNTER → 2022-06-24 | Outpatient (CLI) | payer MEDICARE ==
[~2022-06-24] MED LIST changes: +ISOVUE-370 76% 100ML VIAL As Ordered ONE
== END ==
LOC: M RAD 16:38
PROVIDERS: ATTEND Family Medicine
DX: R91.8 Other nonspecific abnormal finding of lung field (principal); N28.1 Cyst of kidney, acquired
CPT/HCPCS: 71260; Q9967

== ENCOUNTER → 2022-08-12 | Outpatient (CLI) | payer MEDICARE ==
[~2022-08-12] MED LIST changes: -ISOVUE-370 76% 100ML VIAL As Ordered ONE
== END ==
LOC: M PLARAD 14:13
PROVIDERS: ATTEND Family Medicine
DX: R91.8 Other nonspecific abnormal finding of lung field (principal); N28.1 Cyst of kidney, acquired; I71.4 Abdominal aortic aneurysm, without rupture
CPT/HCPCS: 78815; A9552

== ENCOUNTER → 2022-09-24 | Outpatient (CLI) | payer MEDICARE | LOC: M PLAIMG 12:28 | PROVIDERS: ATTEND Physician Assistant Medical | DX: M19.011 Primary osteoarthritis, right shoulder (principal); M51.35 Other intervertebral disc degeneration, thoracolumbar region; W19.XXXA Unspecified fall, initial encounter ==

== ENCOUNTER → 2022-09-29 | Outpatient (REF) | payer MEDICARE ==
[~2022-09-29] MED LIST changes: +ALEN70TA82; +ATOR40TA75; +HYDR-3490; +LOSA100T45; +OXYB-54; +ZOLO100T
== END ==
LOC: M SMT 13:07
PROVIDERS: ATTEND Urology
DX: C67.9 Malignant neoplasm of bladder, unspecified (principal)
CPT/HCPCS: 52000; 88108; G0463

== ENCOUNTER → 2022-10-13 | Outpatient (REF) | payer MEDICARE, OTHER ==
[~2022-10-13] MED LIST changes: -ALEN70TA82; -ATOR40TA75; -HYDR-3490; -LOSA100T45; -OXYB-54; -ZOLO100T
[2022-10-13 18:01] LABS: APPEARANCE, URINE MANUAL CLEAR (CLEAR); BILIRUBIN, URINE MANUAL NEGATIVE (NEGATIVE); BLOOD URINE MANUAL NEGATIVE (NEGATIVE); COLOR, URINE MANUAL YELLOW (YELLOW); GLUCOSE, URINE (UA) MANUAL NEGATIVE (NEGATIVE); KETONE, URINE MANUAL NEGATIVE (NEGATIVE); LEUKOCYTE ESTERASE, URINE MAN NEGATIVE (NEGATIVE); NITRITE, URINE MANUAL NEGATIVE (NEGATIVE); PROTEIN, URINE MANUAL NEGATIVE (NEGATIVE); UROBILINOGEN, URINE MANUAL NORMAL (NORMAL)
== END ==
LOC: M LAB REF 16:31
PROVIDERS: ATTEND Family Medicine
DX: Z01.818 Encounter for other preprocedural examination (principal)

== ENCOUNTER → 2022-10-15 | Outpatient (CLI) | payer MEDICARE ==
[~2022-10-15] MED LIST changes: +ALEN70TA82; +ATOR40TA75; +HYDR-3490; +LOSA100T45; +OXYB-54; +ZOLO100T
== END ==
LOC: M LABSMTC 11:14
PROVIDERS: ATTEND Anesthesiology
DX: Z01.812 Encounter for preprocedural laboratory examination (principal); Z11.52 Encounter for screening for COVID-19

== ENCOUNTER 2022-10-20 11:02 | Day surgery (SDC) | payer MEDICARE ==
[~2022-10-20] VITALS: Ht 162.6 cm; Wt 69.3 kg
[~2022-10-20 11:02] MED LIST changes: +ceFAZolin SOD 2 GM in IV 1 EA IV ONE
[2022-10-20] MEDS ORDERED: LR 1,000 ML IV SCH ×2 (11:30→15:10)
[2022-10-20] MEDS ORDERED: mitoMYcin 40MG VIAL *UROLOGY INTRAVESIC ONE (13:00)
[2022-10-20] MEDS ORDERED: LIDOCAINE 2% 100MG/5ML SDV (FOR ANES.) As Ordered ONE (13:45)
[2022-10-20] MEDS ORDERED: ROCURONIUM BROMIDE 50 MG/5 ML VIAL As Ordered ONE (13:45)
[2022-10-20] MEDS ORDERED: SUGAMMADEX SODIUM 500 MG/5 ML VIAL (BRIDION) As Ordered ONE (13:45)
[2022-10-20] MEDS ORDERED: propofoL 200 MG/20 ML VIAL As Ordered ONE (13:45)
[2022-10-20] MEDS ORDERED: ONDANSETRON 4MG 2ML VIAL As Ordered ONE (13:45)
[2022-10-20] MEDS ORDERED: KETOROLAC 60MG 2ML VIAL As Ordered ONE (13:45)
[2022-10-20] MEDS ORDERED: fentaNYL 100 MCG/2 ML INJECTION As Ordered ONE (13:46)
[2022-10-20] MEDS ORDERED: SCOPOLAMINE 1MG TRANSDERMAL PATCH TOP ONE (14:15)
[2022-10-20] MEDS ORDERED: fentaNYL 100 MCG/2 ML INJECTION IV PRN (15:10)
[2022-10-20] MEDS ORDERED: oxyCODONE 5MG TAB PO PRN (15:10)
[2022-10-20] MEDS ORDERED: HYDROMORPHONE HCL 0.5 MG/ 0.5 ML SYRINGE (J1170 PER 1) IV PRN (15:10)
[2022-10-20] MEDS ORDERED: ONDANSETRON 4MG 2ML VIAL IV PRN (15:10)
[2022-10-20] MEDS ORDERED: ACETAMINOPHEN TAB 650MG DOSE (2X325MG) PO PRN (15:35)
[2022-10-20 16:50] VITALS: BP 141/71
== END 2022-10-20 16:57 | disposition home or self-care (01) ==
LOC: M SDC 11:02
PROVIDERS: ATTEND Urology
DX: C67.5 Malignant neoplasm of bladder neck (principal); I10 Essential (primary) hypertension; E78.00 Pure hypercholesterolemia, unspecified; M85.80 Other specified disorders of bone density and structure, unspecified site; M19.049 Primary osteoarthritis, unspecified hand; M81.0 Age-related osteoporosis without current pathological fracture; F41.9 Anxiety disorder, unspecified; F32.A Depression, unspecified; Z85.528 Personal history of other malignant neoplasm of kidney; Z90.5 Acquired absence of kidney; Z88.5 Allergy status to narcotic agent; Z91.030 Bee allergy status; Z79.899 Other long term (current) drug therapy; Z79.82 Long term (current) use of aspirin; Z79.891 Long term (current) use of opiate analgesic; Z87.891 Personal history of nicotine dependence
CPT/HCPCS: 52234; 88305; J0690; J1100; J1885; J2405; J3010; J9280

== ENCOUNTER → 2022-11-24 | Outpatient (REF) | payer MEDICARE ==
[~2022-11-24] MED LIST changes: -ceFAZolin SOD 2 GM in IV 1 EA IV ONE
[2022-11-24 21:08] LABS: APPEARANCE, URINE MANUAL HAZY (CLEAR); COLOR, URINE MANUAL YELLOW (YELLOW)
[2022-11-24 21:10] LABS: BILIRUBIN, URINE MANUAL NEGATIVE (NEGATIVE); BLOOD URINE MANUAL POSITIVE (NEGATIVE); GLUCOSE, URINE (UA) MANUAL NEGATIVE (NEGATIVE); KETONE, URINE MANUAL NEGATIVE (NEGATIVE); LEUKOCYTE ESTERASE, URINE MAN TRACE (NEGATIVE); NITRITE, URINE MANUAL NEGATIVE (NEGATIVE); PH,URINE MAN 5.5 UNITS (5.0 - 7.0); PROTEIN, URINE MANUAL 2+ mg/dL (NEGATIVE); UROBILINOGEN, URINE MANUAL NORMAL (NORMAL)
[2022-11-24 21:33] LABS: RBC, URINE TNTC /hpf (0-3)
[2022-11-24 21:34] LABS: BACTERIA, URINE NONE SEEN; HYALINE CAST, URINE NONE SEEN /lpf (0-1); SQUAMOUS EPITHELIAL CELL URINE NONE SEEN /hpf (SMALL AMT)
== END ==
LOC: M SMT 17:11
PROVIDERS: ATTEND Urology
DX: R39.15 Urgency of urination (principal)

== ENCOUNTER → 2023-02-25 | Outpatient (REF) | payer MEDICARE | LOC: M SMT 16:41 | PROVIDERS: ATTEND Urology | DX: C67.9 Malignant neoplasm of bladder, unspecified (principal) ==

== ENCOUNTER → 2023-06-12 | Outpatient (CLI) | payer MEDICARE ==
[~2023-06-12] MED LIST changes: -LOSA100T45; +LOSA100T46
== END ==
LOC: M WHC 08:49
PROVIDERS: ATTEND Family Medicine
DX: Z12.31 Encounter for screening mammogram for malignant neoplasm of breast (principal); M81.0 Age-related osteoporosis without current pathological fracture

== ENCOUNTER → 2023-06-15 | Outpatient (REF) | payer MEDICARE | LOC: M SMT 13:04 | PROVIDERS: ATTEND Urology | DX: C67.9 Malignant neoplasm of bladder, unspecified (principal) ==

== ENCOUNTER → 2023-06-26 | Outpatient (CLI) | payer MEDICARE ==
[~2023-06-26] MED LIST changes: +ISOVUE-370 76% 100ML VIAL As Ordered ONE
== END ==
LOC: M RAD 13:39
PROVIDERS: ATTEND Family Medicine
DX: R91.1 Solitary pulmonary nodule (principal); J84.10 Pulmonary fibrosis, unspecified; I71.40 Abdominal aortic aneurysm, without rupture, unspecified
CPT/HCPCS: 71260; Q9967

== ENCOUNTER → 2023-09-28 | Outpatient (REF) | payer MEDICARE ==
[~2023-09-28] MED LIST changes: -ISOVUE-370 76% 100ML VIAL As Ordered ONE
== END ==
LOC: M SMT 13:05
PROVIDERS: ATTEND Urology
DX: C67.9 Malignant neoplasm of bladder, unspecified (principal)

== ENCOUNTER → 2024-03-28 | Outpatient (REF) | payer MEDICARE | LOC: M SMT 12:47 | PROVIDERS: ATTEND Urology | DX: C67.9 Malignant neoplasm of bladder, unspecified (principal) ==

== ENCOUNTER → 2024-04-08 | Outpatient (CLI) | payer MEDICARE ==
[2024-04-08 10:57] LABS: CREATININE FOR GFR 1.08 MG/DL (0.55-1.30); GLOMERULAR FILTRATION RATE 52.7 (>39)
== END ==
LOC: M LAB 09:38
PROVIDERS: ATTEND Physician Assistant
DX: I71.8 Aortic aneurysm of unspecified site, ruptured (principal)

== ENCOUNTER → 2024-04-13 | Outpatient (CLI) | payer MEDICARE ==
[~2024-04-13] MED LIST changes: +ISOVUE-370 76% 100ML VIAL As Ordered ONE
== END ==
LOC: M RAD 07:35
PROVIDERS: ATTEND Surgery Vascular Surgery
DX: I71.40 Abdominal aortic aneurysm, without rupture, unspecified (principal)
CPT/HCPCS: 71275; 74174; Q9967

== ENCOUNTER → 2024-09-26 | Outpatient (REF) | payer MEDICARE, OTHER ==
[~2024-09-26] MED LIST changes: +IBAN150T10 PO; -IBAN150T6 PO; -ISOVUE-370 76% 100ML VIAL As Ordered ONE
== END ==
LOC: M SMT 13:16
PROVIDERS: ATTEND Urology
DX: C67.9 Malignant neoplasm of bladder, unspecified (principal)

== ENCOUNTER → 2024-11-02 | Outpatient (CLI) | payer MEDICARE ==
[~2024-11-02] MED LIST changes: -ALEN70TA82; +ALEN70TA82 PO; -ATOR40TA75; +ATOR40TA75 PO; +CLOP75TA2 PO; -HYDR-3490; +HYDR-3490 PO; -LOSA100T46; +LOSA100T46 PO; -OXYB-54; +OXYB-54 PO; +PANT40TA29 PO; -ZOLO100T; +ZOLO100T PO
[2024-11-02 11:33] LABS: HEMATOCRIT 34.5 % (36.0-47.0); HEMOGLOBIN 11.3 g/dl (12.0-15.5); MEAN CORPUSCULAR HEMOGLOBIN 27.4 pg (27.0-33.0); MEAN CORPUSCULAR HGB CONC 32.8 g/dl (32.0-36.5); MEAN CORPUSCULAR VOLUME 83.5 fl (80.0-96.0); PLATELET COUNT, AUTOMATED 230 10^3/uL (150-450); RED BLOOD COUNT 4.13 10^6/uL (4.00-5.40); WHITE BLOOD COUNT 6.4 10^3/uL (4.0-10.0)
[2024-11-02 12:02] LABS: CREATININE FOR GFR 1.32 MG/DL (0.55-1.30); GLOMERULAR FILTRATION RATE 41.7 (>39); POTASSIUM SERUM 3.4 MMOL/L (3.5-5.1)
== END ==
LOC: M LAB 09:25
PROVIDERS: ATTEND Urology
DX: C67.9 Malignant neoplasm of bladder, unspecified (principal)

== ENCOUNTER → 2024-11-04 | Outpatient (REF) | payer MEDICARE | LOC: M SMT 14:31 | PROVIDERS: ATTEND Urology | DX: Z01.818 Encounter for other preprocedural examination (principal); C67.9 Malignant neoplasm of bladder, unspecified; N39.0 Urinary tract infection, site not specified ==

== ENCOUNTER 2024-11-11 07:22 | Day surgery (SDC) | payer MEDICARE ==
[~2024-11-11] VITALS: Ht 160 cm; Wt 62.7 kg
[2024-11-11] MEDS ORDERED: NS (Normal Saline) 0.9% 1,000 ML IV SCH (08:10)
[2024-11-11] MEDS: ONDANSETRON 4MG 2ML VIAL IV ONE (08:16)
[2024-11-11] MEDS ORDERED: LIDOCAINE 2% 100MG/5ML SDV (FOR ANES.) As Ordered ONE (08:39)
[2024-11-11] MEDS ORDERED: propofoL 200 MG/20 ML VIAL As Ordered ONE (08:39)
[2024-11-11] MEDS ORDERED: fentaNYL 100 MCG/2 ML INJECTION As Ordered ONE (08:40)
[2024-11-11] MEDS ORDERED: ROCURONIUM BROMIDE 50MG/5ML VIAL As Ordered ONE (08:47)
[2024-11-11] MEDS: SCOPOLAMINE 1MG TRANSDERMAL PATCH TOP ONE (08:53)
[2024-11-11] MEDS ORDERED: METOCLOPRAMIDE INJ 10MG/2ML VIAL As Ordered ONE (08:56)
[2024-11-11] MEDS ORDERED: ONDANSETRON 4MG 2ML VIAL As Ordered ONE (08:56)
[2024-11-11] MEDS ORDERED: ACETAMINOPHEN 1000MG/100ML IV BAG As Ordered ONE (09:17)
[2024-11-11] MEDS: ceFAZolin SOD 2 GM in IV 1 EA IV ONE (09:20)
[2024-11-11] MEDS ORDERED: SUGAMMADEX SODIUM 500 MG/5 ML VIAL (BRIDION) As Ordered ONE (09:45)
[2024-11-11] MEDS ORDERED: ONDANSETRON 4MG 2ML VIAL IV PRN (09:55)
[2024-11-11] MEDS ORDERED: fentaNYL 100 MCG/2 ML INJECTION IV PRN (09:55)
[2024-11-11 11:15] VITALS: BP 165/78; TEMP 97; O2SAT 96
== END 2024-11-11 11:32 | disposition home or self-care (01) ==
LOC: M SDC 07:22
PROVIDERS: ATTEND Urology
DX: C67.3 Malignant neoplasm of anterior wall of bladder (principal); Z88.5 Allergy status to narcotic agent; Z91.030 Bee allergy status; Z85.51 Personal history of malignant neoplasm of bladder; Z79.899 Other long term (current) drug therapy; Z87.891 Personal history of nicotine dependence
CPT/HCPCS: 52235; 88305; 93005; J0131; J0690; J1100; J2405; J2765; J3010

== ENCOUNTER → 2024-12-22 | Outpatient (CLI) | payer MEDICARE, OTHER ==
[2024-12-22 10:15] LABS: APPEARANCE, URINE HAZY (CLEAR); BACTERIA, URINE AUTO NEGATIVE (NEGATIVE); BILIRUBIN, URINE AUTO NEGATIVE (NEGATIVE); BLOOD, URINE BLOOD 2+ (NEGATIVE); COLOR, URINE YELLOW (YELLOW); GLUCOSE, URINE (UA) AUTO NEGATIVE (NEGATIVE); KETONE, URINE AUTO NEGATIVE (NEGATIVE); LEUKOCYTE ESTERASE, URINE AUTO 2+ (NEGATIVE); MUCUS, URINE SMALL (NEGATIVE); NITRITE, URINE AUTO NEGATIVE (NEGATIVE); PROTEIN, URINE AUTO NEGATIVE (NEGATIVE); RBC, URINE AUTO 24 /HPF (0-3); SPECIFIC GRAVITY URINE AUTO 1.015 (1.002-1.035); SQUAMOUS EPITHELIAL CELL UR AU 0 /HPF (0-6); UROBILINOGEN, URINE AUTO 0.2 mg/dL (0.0-2.0); WBC, URINE AUTO 44 /HPF (0-3)
[2024-12-22 10:21] LABS: HEMATOCRIT 35.9 % (36.0-47.0); HEMOGLOBIN 11.2 g/dl (12.0-15.5); MEAN CORPUSCULAR HEMOGLOBIN 25.4 pg (27.0-33.0); MEAN CORPUSCULAR HGB CONC 31.2 g/dl (32.0-36.5); MEAN CORPUSCULAR VOLUME 81.4 fl (80.0-96.0); PLATELET COUNT, AUTOMATED 246 10^3/uL (150-450); RED BLOOD COUNT 4.41 10^6/uL (4.00-5.40); WHITE BLOOD COUNT 6.8 10^3/uL (4.0-10.0)
[2024-12-22 10:54] LABS: ALBUMIN 3.3 G/DL (3.2-5.2); BILIRUBIN,TOTAL 0.3 MG/DL (0.3-1.2); CALCIUM LEVEL 8.8 MG/DL (8.3-10.6); CREATININE FOR GFR 1.04 MG/DL (0.55-1.30); GLOMERULAR FILTRATION RATE 54.8 (>39); POTASSIUM SERUM 3.5 MMOL/L (3.5-5.1); TOTAL PROTEIN 7.5 G/DL (5.7-8.2)
== END ==
LOC: M LAB 09:17
PROVIDERS: ATTEND Urology
DX: C67.9 Malignant neoplasm of bladder, unspecified (principal)

== ENCOUNTER → 2024-12-30 | Outpatient (CLI) | payer MEDICARE, OTHER | LOC: M RAD 11:11 | PROVIDERS: ATTEND Family Medicine | DX: E04.1 Nontoxic single thyroid nodule (principal) ==

== ENCOUNTER → 2025-01-09 | Outpatient (REF) | payer MEDICARE, OTHER ==
[2025-01-09 15:08] LABS: APPEARANCE, URINE HAZY (CLEAR); BACTERIA, URINE AUTO NEGATIVE (NEGATIVE); BILIRUBIN, URINE AUTO NEGATIVE (NEGATIVE); BLOOD, URINE BLOOD 2+ (NEGATIVE); COLOR, URINE YELLOW (YELLOW); GLUCOSE, URINE (UA) AUTO NEGATIVE (NEGATIVE); KETONE, URINE AUTO NEGATIVE (NEGATIVE); LEUKOCYTE ESTERASE, URINE AUTO 1+ (NEGATIVE); MUCUS, URINE SMALL (NEGATIVE); NITRITE, URINE AUTO NEGATIVE (NEGATIVE); PROTEIN, URINE AUTO 1+ mg/dL (NEGATIVE); RBC, URINE AUTO 4 /HPF (0-3); SPECIFIC GRAVITY URINE AUTO 1.016 (1.002-1.035); SQUAMOUS EPITHELIAL CELL UR AU 0 /HPF (0-6); UROBILINOGEN, URINE AUTO 0.2 mg/dL (0.0-2.0); WBC, URINE AUTO 38 /HPF (0-3)
== END ==
LOC: M SMT 14:47
PROVIDERS: ATTEND Urology
DX: C67.9 Malignant neoplasm of bladder, unspecified (principal)

== ENCOUNTER → 2025-01-16 | Outpatient (CLI) | payer MEDICARE ==
[~2025-01-16] MED LIST changes: +ACETAMINOPHEN 325 MG TAB PO PRN; +ISOVUE-300 61% 100ML VIAL As Ordered ONE; +NS (Normal Saline) 0.9% 1,000 ML IV SCH; +ONDANSETRON 4MG 2ML VIAL As Ordered ONE; +PERCOCET 5MG/325MG TAB PO PRN; +THROMBIN 5,000 UNITS VIAL As Ordered ONE
[2025-01-16 08:25] VITALS: TEMP 98.7
[2025-01-16 08:43] LABS: PARTIAL THROMBOPLASTIN TIME 27.1 SECONDS (24.8-34.2); PROTHROMBIN TIME 13.5 SECONDS (12.5-14.5)
[2025-01-16] MEDS: MIDAZOLAM INJ 2MG/2ML VIAL IV PRN (09:41)
[2025-01-16] MEDS: fentaNYL 100 MCG/2 ML INJECTION IV PRN (09:41)
[2025-01-16] MEDS: ONDANSETRON 4MG 2ML VIAL IV ONE (09:45)
[2025-01-16] MEDS: ISOVUE-300 61% 100ML VIAL IV ONE (10:35)
[2025-01-16] MEDS: THROMBIN 5,000 UNITS VIAL TOP ONE (10:43)
[2025-01-16] MEDS: LIDOCAINE 1% MDV 20ML VIAL SC ONE (10:43)
[2025-01-16 12:30] VITALS: BP 166/86; O2SAT 96
== END ==
LOC: M IRPRO 07:54
PROVIDERS: ATTEND Urology
DX: N28.89 Other specified disorders of kidney and ureter (principal); C64.2 Malignant neoplasm of left kidney, except renal pelvis
CPT/HCPCS: 50200; 74150; 77012; 85610; 85730; 88305; 99152; 99153; J2250; J2405; J3010; Q9967

== ENCOUNTER → 2025-01-24 | Outpatient (REF) | payer MEDICARE ==
[~2025-01-24] MED LIST changes: -ACETAMINOPHEN 325 MG TAB PO PRN; -ISOVUE-300 61% 100ML VIAL As Ordered ONE; -NS (Normal Saline) 0.9% 1,000 ML IV SCH; -ONDANSETRON 4MG 2ML VIAL As Ordered ONE; -PERCOCET 5MG/325MG TAB PO PRN; -THROMBIN 5,000 UNITS VIAL As Ordered ONE
[2025-01-24 14:18] LABS: APPEARANCE, URINE HAZY (CLEAR); BACTERIA, URINE AUTO NEGATIVE (NEGATIVE); BILIRUBIN, URINE AUTO NEGATIVE (NEGATIVE); BLOOD, URINE BLOOD NEGATIVE (NEGATIVE); COLOR, URINE YELLOW (YELLOW); GLUCOSE, URINE (UA) AUTO NEGATIVE (NEGATIVE); KETONE, URINE AUTO NEGATIVE (NEGATIVE); LEUKOCYTE ESTERASE, URINE AUTO TRACE (NEGATIVE); MUCUS, URINE SMALL (NEGATIVE); NITRITE, URINE AUTO NEGATIVE (NEGATIVE); PROTEIN, URINE AUTO NEGATIVE (NEGATIVE); RBC, URINE AUTO 2 /HPF (0-3); SPECIFIC GRAVITY URINE AUTO 1.017 (1.002-1.035); SQUAMOUS EPITHELIAL CELL UR AU 0 /HPF (0-6); UROBILINOGEN, URINE AUTO 0.2 mg/dL (0.0-2.0); WBC, URINE AUTO 15 /HPF (0-3)
== END ==
LOC: M SMT 12:41
PROVIDERS: ATTEND Urology
DX: C67.9 Malignant neoplasm of bladder, unspecified (principal); N39.0 Urinary tract infection, site not specified

== ENCOUNTER → 2025-01-31 | Outpatient (REF) | payer MEDICARE, OTHER ==
[2025-01-31 18:53] LABS: APPEARANCE, URINE HAZY (CLEAR); BACTERIA, URINE AUTO NEGATIVE (NEGATIVE); BILIRUBIN, URINE AUTO NEGATIVE (NEGATIVE); BLOOD, URINE BLOOD 3+ (NEGATIVE); COLOR, URINE YELLOW (YELLOW); GLUCOSE, URINE (UA) AUTO NEGATIVE (NEGATIVE); KETONE, URINE AUTO NEGATIVE (NEGATIVE); LEUKOCYTE ESTERASE, URINE AUTO 1+ (NEGATIVE); MUCUS, URINE SMALL (NEGATIVE); NITRITE, URINE AUTO NEGATIVE (NEGATIVE); PROTEIN, URINE AUTO NEGATIVE (NEGATIVE); RBC, URINE AUTO 39 /HPF (0-3); SPECIFIC GRAVITY URINE AUTO 1.016 (1.002-1.035); SQUAMOUS EPITHELIAL CELL UR AU 1 /HPF (0-6); UROBILINOGEN, URINE AUTO 0.2 mg/dL (0.0-2.0); WBC, URINE AUTO 22 /HPF (0-3)
== END ==
LOC: M SMT 17:07
PROVIDERS: ATTEND Urology
DX: C67.9 Malignant neoplasm of bladder, unspecified (principal)

== ENCOUNTER → 2025-02-06 | Outpatient (REF) | payer MEDICARE, OTHER ==
[2025-02-06 17:09] LABS: APPEARANCE, URINE HAZY (CLEAR); BACTERIA, URINE AUTO NEGATIVE (NEGATIVE); BILIRUBIN, URINE AUTO NEGATIVE (NEGATIVE); BLOOD, URINE BLOOD NEGATIVE (NEGATIVE); COLOR, URINE YELLOW (YELLOW); GLUCOSE, URINE (UA) AUTO NEGATIVE (NEGATIVE); KETONE, URINE AUTO NEGATIVE (NEGATIVE); LEUKOCYTE ESTERASE, URINE AUTO TRACE (NEGATIVE); NITRITE, URINE AUTO NEGATIVE (NEGATIVE); PROTEIN, URINE AUTO NEGATIVE (NEGATIVE); RBC, URINE AUTO 1 /HPF (0-3); SPECIFIC GRAVITY URINE AUTO 1.016 (1.002-1.035); SQUAMOUS EPITHELIAL CELL UR AU 0 /HPF (0-6); UROBILINOGEN, URINE AUTO 0.2 mg/dL (0.0-2.0); WBC, URINE AUTO 10 /HPF (0-3)
== END ==
LOC: M SMT 16:48
PROVIDERS: ATTEND Physician Assistant
DX: C67.9 Malignant neoplasm of bladder, unspecified (principal); Z79.899 Other long term (current) drug therapy

== ENCOUNTER → 2025-02-13 | Outpatient (REF) | payer MEDICARE, OTHER ==
[2025-02-13 13:22] LABS: APPEARANCE, URINE HAZY (CLEAR); BACTERIA, URINE AUTO NEGATIVE (NEGATIVE); BILIRUBIN, URINE AUTO NEGATIVE (NEGATIVE); BLOOD, URINE BLOOD 1+ (NEGATIVE); COLOR, URINE YELLOW (YELLOW); GLUCOSE, URINE (UA) AUTO NEGATIVE (NEGATIVE); KETONE, URINE AUTO NEGATIVE (NEGATIVE); LEUKOCYTE ESTERASE, URINE AUTO 2+ (NEGATIVE); MUCUS, URINE SMALL (NEGATIVE); NITRITE, URINE AUTO NEGATIVE (NEGATIVE); PROTEIN, URINE AUTO NEGATIVE (NEGATIVE); RBC, URINE AUTO 31 /HPF (0-3); SPECIFIC GRAVITY URINE AUTO 1.014 (1.002-1.035); SQUAMOUS EPITHELIAL CELL UR AU 0 /HPF (0-6); UROBILINOGEN, URINE AUTO 0.2 mg/dL (0.0-2.0); WBC, URINE AUTO 30 /HPF (0-3)
== END ==
LOC: M SMT 12:39
PROVIDERS: ATTEND Physician Assistant
DX: N39.41 Urge incontinence (principal)

== ENCOUNTER → 2025-02-20 | Outpatient (REF) | payer MEDICARE, OTHER ==
[2025-02-20 15:52] LABS: APPEARANCE, URINE CLOUDY (CLEAR); BACTERIA, URINE AUTO 1+ (NEGATIVE); BILIRUBIN, URINE AUTO NEGATIVE (NEGATIVE); BLOOD, URINE BLOOD 1+ (NEGATIVE); COLOR, URINE AMBER (YELLOW); GLUCOSE, URINE (UA) AUTO NEGATIVE (NEGATIVE); KETONE, URINE AUTO NEGATIVE (NEGATIVE); LEUKOCYTE ESTERASE, URINE AUTO 3+ (NEGATIVE); MUCUS, URINE SMALL (NEGATIVE); NITRITE, URINE AUTO NEGATIVE (NEGATIVE); PROTEIN, URINE AUTO NEGATIVE (NEGATIVE); RBC, URINE AUTO 16 /HPF (0-3); SPECIFIC GRAVITY URINE AUTO 1.017 (1.002-1.035); SQUAMOUS EPITHELIAL CELL UR AU 2 /HPF (0-6); UROBILINOGEN, URINE AUTO 0.2 mg/dL (0.0-2.0); WBC, URINE AUTO 74 /HPF (0-3)
== END ==
LOC: M SMT 15:07
PROVIDERS: ATTEND Urology
DX: C67.9 Malignant neoplasm of bladder, unspecified (principal); Z79.899 Other long term (current) drug therapy

== ENCOUNTER → 2025-02-23 | Outpatient (CLI) | payer MEDICARE ==
[2025-02-23 13:44] LABS: INR 1.07; PROTHROMBIN TIME 14.3 SECONDS (12.5-14.5)
== END ==
LOC: M LAB 12:50
PROVIDERS: ATTEND Radiology Diagnostic Radiology
DX: C64.2 Malignant neoplasm of left kidney, except renal pelvis (principal)

== ENCOUNTER → 2025-02-27 | Outpatient (CLI) | payer MEDICARE ==
[~2025-02-27] VITALS: Ht 161.3 cm; Wt 63.0 kg
[~2025-02-27] MED LIST changes: +ACETAMINOPHEN 325 MG TAB PO PRN; +ISOVUE-300 61% 100ML VIAL IV SCH; +ISOVUE-370 76% 100ML VIAL As Ordered ONE; +ISOVUE-370 76% 100ML VIAL IV ONE; +NS (Normal Saline) 0.9% 1,000 ML IV SCH; +ONDANSETRON 4MG 2ML VIAL IV PRN; +PERCOCET 5MG/325MG TAB PO PRN
[2025-02-27 07:45] VITALS: TEMP 97.9
[2025-02-27] MEDS: NS (Normal Saline) 0.9% 1,000 ML IV SCH (08:14)
[2025-02-27] MEDS: CIPROFLOXACIN 400 MG in IV 1 EA IV ONE (08:14)
[2025-02-27] MEDS: ONDANSETRON 4MG 2ML VIAL IV ONE (08:45)
[2025-02-27] MEDS: fentaNYL 100 MCG/2 ML INJECTION IV PRN (08:45)
[2025-02-27] MEDS: MIDAZOLAM INJ 2MG/2ML VIAL IV PRN (08:45)
[2025-02-27] MEDS: LIDOCAINE 1% MDV 20ML VIAL SC SCH (10:10)
[2025-02-27 13:30] VITALS: BP 128/58; O2SAT 95
== END ==
LOC: M IRPRO 07:22
PROVIDERS: ATTEND Urology
DX: C64.2 Malignant neoplasm of left kidney, except renal pelvis (principal)
CPT/HCPCS: 50592; 77012; 99152; 99153; C1886; J0744; J2250; J2405; J3010; Q9967

== ENCOUNTER → 2025-02-28 | Outpatient (REF) | payer MEDICARE ==
[~2025-02-28] MED LIST changes: -ACETAMINOPHEN 325 MG TAB PO PRN; -ISOVUE-300 61% 100ML VIAL IV SCH; -ISOVUE-370 76% 100ML VIAL As Ordered ONE; -ISOVUE-370 76% 100ML VIAL IV ONE; -NS (Normal Saline) 0.9% 1,000 ML IV SCH; -ONDANSETRON 4MG 2ML VIAL IV PRN; -PERCOCET 5MG/325MG TAB PO PRN
[2025-02-28 15:34] LABS: APPEARANCE, URINE CLEAR (CLEAR); BACTERIA, URINE AUTO NEGATIVE (NEGATIVE); BILIRUBIN, URINE AUTO NEGATIVE (NEGATIVE); BLOOD, URINE BLOOD NEGATIVE (NEGATIVE); COLOR, URINE YELLOW (YELLOW); GLUCOSE, URINE (UA) AUTO NEGATIVE (NEGATIVE); KETONE, URINE AUTO NEGATIVE (NEGATIVE); LEUKOCYTE ESTERASE, URINE AUTO TRACE (NEGATIVE); NITRITE, URINE AUTO NEGATIVE (NEGATIVE); PROTEIN, URINE AUTO NEGATIVE (NEGATIVE); RBC, URINE AUTO 7 /HPF (0-3); SPECIFIC GRAVITY URINE AUTO 1.015 (1.002-1.035); SQUAMOUS EPITHELIAL CELL UR AU 0 /HPF (0-6); UROBILINOGEN, URINE AUTO 0.2 mg/dL (0.0-2.0); WBC, URINE AUTO 6 /HPF (0-3)
== END ==
LOC: M SMT 14:58
PROVIDERS: ATTEND Urology
DX: C67.9 Malignant neoplasm of bladder, unspecified (principal)

== ENCOUNTER → 2025-03-24 | Outpatient (CLI) | payer MEDICARE ==
[~2025-03-24] MED LIST changes: -AMBI5TAB PO; +ECOT81TA5 PO; +MAG100TA PO; +ZOLP-532 PO
[2025-03-24 10:57] LABS: CALCIUM LEVEL 8.8 MG/DL (8.3-10.6); CREATININE FOR GFR 1.24 MG/DL (0.55-1.30); GLOMERULAR FILTRATION RATE 45.1 (>39); POTASSIUM SERUM 3.6 MMOL/L (3.5-5.1)
== END ==
LOC: M LAB 09:46
PROVIDERS: ATTEND Radiology Diagnostic Radiology
DX: C64.9 Malignant neoplasm of unspecified kidney, except renal pelvis (principal)

== ENCOUNTER → 2025-03-29 | Outpatient (CLI) | payer MEDICARE ==
[~2025-03-29] MED LIST changes: +ISOVUE-370 76% 100ML VIAL As Ordered ONE
== END ==
LOC: M RAD 09:08
PROVIDERS: ATTEND Radiology Diagnostic Radiology
DX: C64.2 Malignant neoplasm of left kidney, except renal pelvis (principal)

== ENCOUNTER → 2025-03-29 | Outpatient (POV) | payer MEDICARE ==
[~2025-03-29] VITALS: Ht 162.6 cm; Wt 47.3 kg
[~2025-03-29] MED LIST changes: -ISOVUE-370 76% 100ML VIAL As Ordered ONE
[2025-03-29 10:20] VITALS: BP 172/92; O2SAT 97
== END ==
LOC: M IRPOV 09:12
PROVIDERS: ATTEND Radiology Diagnostic Radiology
DX: Z48.3 Aftercare following surgery for neoplasm (principal); C64.2 Malignant neoplasm of left kidney, except renal pelvis; I71.23 Aneurysm of the descending thoracic aorta, without rupture; Z88.5 Allergy status to narcotic agent; Z91.030 Bee allergy status

== ENCOUNTER → 2025-03-29 | Outpatient (CLI) | payer MEDICARE | LOC: M RAD 09:07 | PROVIDERS: ATTEND Surgery Vascular Surgery | DX: Z86.79 Personal history of other diseases of the circulatory system (principal); I71.5 Thoracoabdominal aortic aneurysm, ruptured; Z85.528 Personal history of other malignant neoplasm of kidney ==

== ENCOUNTER → 2025-08-14 | Outpatient (REF) | payer MEDICARE, OTHER ==
[~2025-08-14] MED LIST changes: +HYDR12.510 PO; -HYDR12CA PO
== END ==
LOC: M SMT 13:04
PROVIDERS: ATTEND Urology
DX: C67.9 Malignant neoplasm of bladder, unspecified (principal)